=== PATIENT | male | born 1955 | race Caucasian/White ===

== ENCOUNTER 2022-08-02 20:11 | Observation (INO) ==
[2022-08-02 21:08] LABS: Basophils # (auto) 0.04 K/uL (0-0.2); Basophils % (auto) 0.4 %; Eosinophils # (auto) 0.35 K/uL (0-0.50); Eosinophils % (auto) 3.6 %; Hematocrit (blood only) 40.2 % (40.1-51.0); Hemoglobin 12.7 g/dl (14.0-18.0); Immature Granulocytes # (auto) 0.04 K/uL (0.00-0.02); Immature Granulocytes % (auto) 0.4 %; Lymphocytes # (auto) 2.39 K/uL (1.2-3.4); Lymphocytes % (auto) 24.6 %; Mean Corpuscular Hgb Conc 31.6 g/dL (32.0-36.0); Mean Corpuscular Volume 85.4 fL (80.0-100.0); Mean Platelet Volume 9.5 fL (9.4-12.4); Monocytes # (auto) 0.81 K/uL (0.24-0.82); Monocytes % (auto) 8.3 %; Neutrophils % (auto) 62.7 %; Platelet Count 248 K/uL (130-400); RDW Coefficient of Variation 13.4 % (11.5-14.5); RDW Standard Deviation 42.2 fL (36.4-46.3); Red Blood Count 4.71 M/uL (4.63-6.08); White Blood Count 9.73 K/ul (4.8-10.8)
[2022-08-02 21:09] LABS: Base Excess VBG -0.5 mEq/L; HCO3 VBG 24 mmol/L; Oxygen Saturation VBG 62.6 %; PCO2 VBG 39 mmHg (38-50); PO2 VBG 30 mmHg
[2022-08-02 21:15] LABS: D Dimer 300 ug/L FEU (0-500); Partial Thromboplastin Ratio 1.1; Partial Thromboplastin Time 29.1 Seconds (21.0-31.0); Prothrombin Time 10.9 Seconds (9.0-12.0)
[2022-08-02 21:17] LABS: Troponin I High Sensitivity 12.9 pg/ml (0-20)
[2022-08-02 21:20] LABS: Alanine Aminotransferase 8 U/L (7-52); Albumin Globulin Ratio 1.4 (0.9-2); Alkaline Phosphatase 47 U/L (34-104); Anion Gap 10 (3-11); Aspartate Aminotransferase 14 U/L (13-39); BUN Creatinine Ratio 16.7 (10-20); Bilirubin,Total 0.3 mg/dl (0.2-1.0); Blood Urea Nitrogen 18 mg/dl (6-23); Calcium 9.2 mg/dl (8.5-10.1); Carbon Dioxide 24 mmol/L (21-32); Chloride 105 mmol/L (98-107); Est GFR (Non-African American) 71.6 ml/min; Globulin 2.8 gm/dl (2.5-4.0); Glucose 232 mg/dl (70-99(Fasting)); Lipase 21 U/L (11-82); Potassium 3.7 mmol/L (3.5-5.1); Sodium 139 mmol/L (136-145); Total Protein 6.8 gm/dl (6.0-8.3)
--- NOTE | 2022-08-02 21:47 | XRay Report ---
XR chest 1V portable CLINICAL HISTORY: Chest Pain TECHNIQUE: Single frontal radiograph of the chest was obtained. Comparison: None available at the time of this dictation. FINDINGS: No lines and tubes are seen. The cardiomediastinal silhouette is normal. No airspace opacity is seen. There is bilateral hilar prominence. No evidence of pleural effusion or pneumothorax. IMPRESSION: 1. Mild pulmonary edema. 2. Prominent david may represent lymphadenopathy versus prominent pulmonary vasculature. If there is clinical concern, CT chest can be performed. ACT 112: Negative or not required by law. Electronically signed by: Shaun Bustamante M.D. 08/02/2022 9:46 PM
[2022-08-02] MEDS ORDERED: ALBUT/IPRATROP 3MG/0.5MG NEB 3 ML VIAL NEB STA (23:20)
[2022-08-03] MEDS ORDERED: OPTIRAY 300 500mL IV ONE (00:05)
[2022-08-03] MEDS ORDERED: methylPREDNISolone 125 MG/2 ML VIAL IV STA (01:52)
--- NOTE | 2022-08-03 01:52 | Emergency Department Note ---
History of Present Illness General Chief complaint: Chest Pain Stated complaint: CHEST PAIN Time Seen by Provider: 08/02/22 21:28 History of Present Illness This 67-year-old prisoner presents to the ER complaining of chest pain and shortness of breath Location: Chest Quality: Discomfort Severity: Mild Duration: Today Timing: Today Context: M[facility] was concerned and sent him in Modifying factors: better with nothing; worse with nothing Patient states he is feeling better now. He did have some chest pain today. He smokes. Patient denies fevers, abdominal pain, leg pain or swelling, history of blood clots. He is [place]ian-speaking and the optical instrument specialist line was utilized. Home Medications Medication Instructions Recorded Confirmed Type albuterol sulfate 90 mcg/actuation 2 puff inhalation QID PRN 08/02/22 08/02/22 History aerosol inhaler (Proventil HFA) Shortness Of Breath aspirin 81 mg tablet,delayed 81 mg PO DAILY 08/02/22 08/02/22 History release metformin 1,000 mg tablet 1,000 mg PO BID 08/02/22 08/02/22 History naproxen 500 mg tablet 500 mg PO BID PRN Back Pain 08/02/22 08/02/22 History rosuvastatin 40 mg tablet 40 mg PO HS 08/02/22 08/02/22 History prednisone 20 mg tablet 60 mg PO DAILY 4 days #12 tabs 08/03/22 Rx Allergies Allergy/AdvReac Type Severity Reaction Status Date / Time Fish Containing Products Allergy Unknown ON MED Verified 08/02/22 22:16 LIST--MARGAUX-[facility] Past Med/Surg History Medical History High blood pressure Surgical History (Updated 08/03/22 @ 01:51 by Cally Bird PA-C) History of heart valve replacement Social History Smoking Status: Former smoker Feels Safe at Home: Yes Review of Systems A total of 10 systems reviewed and were otherwise negative Physical Exam Vital Signs Vital Signs - 24 hr 08/02/22 20:33 08/02/22 20:40 08/03/22 01:06 Temperature 37.5 C Temperature Source Oral Pulse Rate 82 Pulse Rate from SpO2 Sensor Respiratory Rate 16 Respiratory Effort / Characteristics Non-Labored Non-Labored Respiratory Depth Normal Normal Blood Pressure 124/70 Blood Pressure Mean 88 Pulse Oximetry 94 93 Oxygen Delivery Method Room Air Room Air Oxygen Flow Rate Sepsis Recent Fever Within 48 Hours No Sepsis New/Unexplained Change in Mental Status No Sepsis Action Taken by Nursing No Action Required 08/02/22 21:37 08/02/22 21:40 08/02/22 21:50 Temperature Temperature Source Pulse Rate 82 84 78 Pulse Rate from SpO2 Sensor 83 83 79 Respiratory Rate 10 L 20 27 H Respiratory Effort / Characteristics Respiratory Depth Blood Pressure Blood Pressure Mean Pulse Oximetry 93 93 93 Oxygen Delivery Method Oxygen Flow Rate Sepsis Recent Fever Within 48 Hours Sepsis New/Unexplained Change in Mental Status Sepsis Action Taken by Nursing 08/02/22 22:00 08/02/22 22:10 08/02/22 22:20 Temperature Temperature Source Pulse Rate 88 77 76 Pulse Rate from SpO2 Sensor 86 75 75 Respiratory Rate 25 H 19 18 Respiratory Effort / Characteristics Respiratory Depth Blood Pressure Blood Pressure Mean Pulse Oximetry 95 90 90 Oxygen Delivery Method Oxygen Flow Rate Sepsis Recent Fever Within 48 Hours Sepsis New/Unexplained Change in Mental Status Sepsis Action Taken by Nursing 08/02/22 22:30 08/02/22 22:40 08/02/22 22:50 Temperature Temperature Source Pulse Rate 82 76 77 Pulse Rate from SpO2 Sensor 80 75 77 Respiratory Rate 17 16 15 Respiratory Effort / Characteristics Respiratory Depth Blood Pressure Blood Pressure Mean Pulse Oximetry 90 91 92 Oxygen Delivery Method Oxygen Flow Rate Sepsis Recent Fever Within 48 Hours Sepsis New/Unexplained Change in Mental Status Sepsis Action Taken by Nursing 08/02/22 23:00 08/02/22 23:10 08/02/22 23:20 Temperature Temperature Source Pulse Rate 80 78 77 Pulse Rate from SpO2 Sensor 81 78 78 Respiratory Rate 17 16 12 Respiratory Effort / Characteristics Respiratory Depth Blood Pressure Blood Pressure Mean Pulse Oximetry 93 91 92 Oxygen Delivery Method Oxygen Flow Rate Sepsis Recent Fever Within 48 Hours Sepsis New/Unexplained Change in Mental Status Sepsis Action Taken by Nursing 08/02/22 23:30 08/02/22 23:40 08/02/22 23:50 Temperature Temperature Source Pulse Rate 72 80 82 Pulse Rate from SpO2 Sensor 72 80 79 Respiratory Rate 16 16 19 Respiratory Effort / Characteristics Respiratory Depth Blood Pressure Blood Pressure Mean Pulse Oximetry 99 99 98 Oxygen Delivery Method Oxygen Flow Rate Sepsis Recent Fever Within 48 Hours Sepsis New/Unexplained Change in Mental Status Sepsis Action Taken by Nursing 08/03/22 00:08 08/03/22 00:10 08/03/22 00:20 Temperature Temperature Source Pulse Rate 94 H 89 Pulse Rate from SpO2 Sensor 91 H 96 H 87 Respiratory Rate 20 16 Respiratory Effort / Characteristics Respiratory Depth Blood Pressure Blood Pressure Mean Pulse Oximetry 93 93 94 Oxygen Delivery Method Oxygen Flow Rate Sepsis Recent Fever Within 48 Hours Sepsis New/Unexplained Change in Mental Status Sepsis Action Taken by Nursing 08/03/22 00:30 08/03/22 00:40 08/03/22 00:50 Temperature Temperature Source Pulse Rate 86 85 91 H Pulse Rate from SpO2 Sensor 87 86 91 H Respiratory Rate 18 12 18 Respiratory Effort / Characteristics Respiratory Depth Blood Pressure Blood Pressure Mean Pulse Oximetry 91 90 91 Oxygen Delivery Method Oxygen Flow Rate Sepsis Recent Fever Within 48 Hours Sepsis New/Unexplained Change in Mental Status Sepsis Action Taken by Nursing 08/03/22 01:00 08/03/22 01:10 08/03/22 01:20 Temperature Temperature Source Pulse Rate 86 89 88 Pulse Rate from SpO2 Sensor 87 90 89 Respiratory Rate 13 15 16 Respiratory Effort / Characteristics Respiratory Depth Blood Pressure Blood Pressure Mean Pulse Oximetry 91 91 91 Oxygen Delivery Method Oxygen Flow Rate Sepsis Recent Fever Within 48 Hours Sepsis New/Unexplained Change in Mental Status Sepsis Action Taken by Nursing 08/02/22 21:06 08/03/22 03:00 Temperature Temperature Source Pulse Rate Pulse Rate from SpO2 Sensor Respiratory Rate Respiratory Effort / Characteristics Non-Labored Respiratory Depth Normal Blood Pressure Blood Pressure Mean Pulse Oximetry Oxygen Delivery Method Room Air Oxygen Flow Rate 93 Sepsis Recent Fever Within 48 Hours Sepsis New/Unexplained Change in Mental Status Sepsis Action Taken by Nursing VITALS: Vitals are noted on the nurse's note and reviewed by myself. Vital signs stable. GENERAL: Male sitting on the bed comfortably, in no acute distress, nondiaphoretic, well-developed well-nourished. SKIN: The skin was without rashes, erythema, edema, or bruising. There is no tenting of the skin. Capillary reflex less than 2 seconds. HEAD: Normocephalic atraumatic. EARS: External auditory canals clear, EYES: Pupils equal round and reactive to light and accommodation. Conjunctivae without injection, sclerae without icterus. Extraocular movements intact. NOSE: Patent, turbinates without inflammation or discharge. MOUTH: Mucous membranes moist. Pharynx without erythema or exudate. Uvula midline. Airway patent. Tongue does not deviate. NECK: Supple without nuchal rigidity. No lymphadenopathy. No thyromegaly. Cervical spine is nontender. No JVD. HEART: Regular rate and rhythm LUNGS: Mild diffuse end expiratory wheezes, without rales or rhonchi. No retractions or accessory muscle use. ABDOMEN: Positive bowel sounds x 4. Normal tympanic percussion. Soft, nonte nder, without masses or organomegaly. De León sign negative. No guarding or rebound tenderness. No CVA tenderness MUSCULOSKELETAL: No muscle atrophy, erythema, or edema noted. NEURO: Patient was alert and oriented to person place and time. Normal sensation to light and sharp touch. No focal neurological deficits. Course Administered Medications Discontinued Medications Albuterol (Albut/Ipratrop 3mg/0.5mg Neb 3 Ml Vial) 3 ml NEB NOW STA; Protocol Stop: 08/02/22 23:21 Last Admin: 08/02/22 23:28 Dose: 3 ml Documented By: CHLOÉ Ioversol (Optiray 300 500ml) 120 ml IV ONCE ONE Stop: 08/03/22 00:06 Last Admin: 08/03/22 00:02 Dose: 120 ml Documented By: CELESTINA Methylprednisolone (Methylprednisolone 125 Mg/2 Ml Vial) 125 mg IV NOW STA Stop: 08/03/22 01:53 Last Admin: 08/03/22 02:45 Dose: 125 mg Documented By: CHLOÉ Medical Decision Making Medical Records Attestation: I reviewed the patient's medical records. Home Medications Current Medication List: was personally reviewed by me Laboratory Data Attestation: I reviewed the patient's lab results. Result diagrams: 08/02/22 20:20 08/02/22 20:20 Lab Results 08/02/22 08/02/22 08/02/22 Range/Units 20:20 20:20 20:20 WBC 9.73 (4.8-10.8) K/ul RBC 4.71 (4.63-6.08) M/uL Hgb 12.7 L (14.0-18.0) g/dl Hct 40.2 (40.1-51.0) % MCV 85.4 (80.0-100.0) fL MCH 27.0 (25.0-34.0) pg MCHC 31.6 L (32.0-36.0) g/dL RDW Std Deviation 42.2 (36.4-46.3) fL RDW Coeff of Zach 13.4 (11.5-14.5) % Plt Count 248 (130-400) K/uL MPV 9.5 (9.4-12.4) fL Immature Gran % (Auto) 0.4 % Neut % (Auto) 62.7 % Lymph % (Auto) 24.6 % Quay % (Auto) 8.3 % Eos % (Auto) 3.6 % Baso % (Auto) 0.4 % Neut # (Auto) 6.10 (1.4-6.5) K/uL Lymph # (Auto) 2.39 (1.2-3.4) K/uL Quay # (Auto) 0.81 (0.24-0.82) K/uL Eos # (Auto) 0.35 (0-0.50) K/uL Baso # (Auto) 0.04 (0-0.2) K/uL Immature Gran # (Auto) 0.04 H (0.00-0.02) K/uL PT 10.9 (9.0-12.0) Seconds INR 1.0 (0.9-1.1) APTT 29.1 (21.0-31.0) Seconds PTT Ratio 1.1 D-Dimer 300 (0-500) ug/L FEU VBG pH (7.36-7.41) VBG pCO2 (38-50) mmHg VBG pO2 mmHg VBG HCO3 mmol/L VBG O2 Saturation % VBG Base Excess mEq/L Methemoglobin (0.0-1.5) % Sodium 139 (136-145) mmol/L Potassium 3.7 (3.5-5.1) mmol/L Chloride 105 (98-107) mmol/L Carbon Dioxide 24 (21-32) mmol/L Anion Gap 10 (3-11) BUN 18 (6-23) mg/dl Creatinine 1.08 (0.6-1.4) mg/dl Est Cr Clr Drug Dosing Not Reportable Est GFR ( Amer) 83.0 ml/min Est GFR (Non-Af Amer) 71.6 ml/min BUN/Creatinine Ratio 16.7 (10-20) Glucose 232 H (70-99(Fasting)) mg/dl Calcium 9.2 (8.5-10.1) mg/dl Total Bilirubin 0.3 (0.2-1.0) mg/dl AST 14 (13-39) U/L ALT 8 (7-52) U/L Alkaline Phosphatase 47 (34-104) U/L Troponin I High Sens 12.9 (0-20) pg/ml Total Protein 6.8 (6.0-8.3) gm/dl Albumin 4.0 (3.4-5.0) gm/dl Globulin 2.8 (2.5-4.0) gm/dl Albumin/Globulin Ratio 1.4 (0.9-2) Lipase 21 (11-82) U/L 08/02/22 08/02/22 08/03/22 Range/Units 21:02 21:02 02:14 WBC (4.8-10.8) K/ul RBC (4.63-6.08) M/uL Hgb (14.0-18.0) g/dl Hct (40.1-51.0) % MCV (80.0-100.0) fL MCH (25.0-34.0) pg MCHC (32.0-36.0) g/dL RDW Std Deviation (36.4-46.3) fL RDW Coeff of Zach (11.5-14.5) % Plt Count (130-400) K/uL MPV (9.4-12.4) fL Immature Gran % (Auto) % Neut % (Auto) % Lymph % (Auto) % Quay % (Auto) % Eos % (Auto) % Baso % (Auto) % Neut # (Auto) (1.4-6.5) K/uL Lymph # (Auto) (1.2-3.4) K/uL Quay # (Auto) (0.24-0.82) K/uL Eos # (Auto) (0-0.50) K/uL Baso # (Auto) (0-0.2) K/uL Immature Gran # (Auto) (0.00-0.02) K/uL PT (9.0-12.0) Seconds INR (0.9-1.1) APTT (21.0-31.0) Seconds PTT Ratio D-Dimer (0-500) ug/L FEU VBG pH 7.40 (7.36-7.41) VBG pCO2 39 (38-50) mmHg VBG pO2 30 mmHg VBG HCO3 24 mmol/L VBG O2 Saturation 62.6 % VBG Base Excess -0.5 mEq/L Methemoglobin < 0.7 (0.0-1.5) % Sodium (136-145) mmol/L Potassium (3.5-5.1) mmol/L Chloride (98-107) mmol/L Carbon Dioxide (21-32) mmol/L Anion Gap (3-11) BUN (6-23) mg/dl Creatinine (0.6-1.4) mg/dl Est Cr Clr Drug Dosing Est GFR ( Amer) ml/min Est GFR (Non-Af Amer) ml/min BUN/Creatinine Ratio (10-20) Glucose (70-99(Fasting)) mg/dl Calcium (8.5-10.1) mg/dl Total Bilirubin (0.2-1.0) mg/dl AST (13-39) U/L ALT (7-52) U/L Alkaline Phosphatase (34-104) U/L Troponin I High Sens 24.7 H D (0-20) pg/ml Total Protein (6.0-8.3) gm/dl Albumin (3.4-5.0) gm/dl Globulin (2.5-4.0) gm/dl Albumin/Globulin Ratio (0.9-2) Lipase (11-82) U/L Imaging Data Attestation: I personally reviewed and interpreted this imaging study as follows: Radiologist's Impression: Chest X-Ray 08/02/22 20:40 XR chest 1V portable CLINICAL HISTORY: Chest Pain TECHNIQUE: Single frontal radiograph of the chest was obtained. Comparison: None available at the time of this dictation. FINDINGS: No lines and tubes are seen. The cardiomediastinal silhouette is normal. No airspace opacity is seen. There is bilateral hilar prominence. No evidence of pleural effusion or pneumothorax. IMPRESSION: 1. Mild pulmonary edema. 2. Prominent david may represent lymphadenopathy versus prominent pulmonary vasculature. If there is clinical concern, CT chest can be performed. ACT 112: Negative or not required by law. Electronically signed by: Shaun Bustamante M.D. 08/02/2022 9:46 PM MDM Narrative Prior records/ancillary studies reviewed. Triage Nursing notes reviewed. Additional history obtained from nursing. The patient's history was concerning for chest pain. Differential diagnosis: Etiologies such as cardiac ischemia, aortic dissection, pulmonary embolism, pneumonia, pneumothorax, musculoskeletal, infections, pericarditis, myocarditis, esophageal rupture, gastrointestinal, as well as others were entertained. Physical examination: As above. ER treatment provided: An order was placed for continuous cardiac monitoring. The monitor shows a rate of 60-100 with a sinus rhythm. Nebulizer, steroids, intermediate give aspirin On reassessment the patient felt better. Diagnostic interpretation by me: The electrocardiogram was negative for pathologic change. Order for chest pain EKG: Normal sinus, normal intervals, no acute ST-T wave changes. Impression normal sinus rhythm interpreted by myself I think arrhythmia is unlikely. EKG shows normal sinus rhythm with no interval abnormalities such as QT prolongation or WPW. There are no findings to suggest Brugada syndrome. Cardiac monitoring in the emergency department reveals no tachycardic or bradycardic dysrhythmia. Hypertrophic cardiomyopathy was considered but there are no clear historical elements pointing toward this. EKG is not suggestive. The QRS voltage is not extremely large and there are no suggestive Q waves. The labs revealed 1 negative troponin and repeat was elevated Imaging studies: Preliminary Findings Only See Final Report For Complete Findings CTA CHEST: Negative for PE Centrilobular emphysema Peribronchial cuffing compatible with COPD Dependent atelectasis noted No acute airspace disease or effusions are present Left lower lobe opacity in the medial segment image measures up to 4 x 2 mm and requires follow-up according to institutional protocol Radiologist: Shaun Rhoades MD chest x-ray with no acute consolidation, pneumothorax or free air per my interpretation HEART SCORE: Hx: high/mod/low suspicion: 0 ECG: ST depression/nonspecific changes/normal: 0 Age: Greater than 65/45-64/less than 45: 2 Risk factors: (Hypertension, hyperlipidemia, diabetes, coronary disease, tobacco use, cocaine use): 2 Troponin: Greater than 2 times normal limits/1-2 times normal limits/normal: 1 Total: 5 Exam and history seem consistent with chest pain that could be to be cardiac in etiology. Patient does have some COPD exacerbation. Repeat troponin is elevated. Medicine was consulted for the admission. By the evaluation outlined above emergent etiologies such as aortic dissection, pulmonary embolism, pneumonia, pneumothorax, infections, pericarditis, myocarditis, gastrointestinal, as well as others were deemed relatively unlikely. Patient was informed of lung nodule seen on imaging And advised to see the intermediate doctor for this. The pt informed about the findings as listed above. All questions were answered and pleased with the treatment. The chart was completed utilizing [employer] Speech voice recognition software. G rammatical errors, random word insertions, pronoun errors, and incomplete sentences are an occassional consequence of this system due to software limitations, ambient noise, and hardware issues. Any formal questions or concerns about the content, text, or information contained within the body of th is dictation should be directly addressed to the physician executive assistant for clarification. Impression & Plan Chest pain, COPD exacerbation, Elevated troponin Discharge Plan Visit Data Chief Complaint: Chest Pain Stated Complaint: CHEST PAIN ED Provider: Wyatt Mahajan ED Midlevel Provider: Cally Bird Discharge Problem: Chest pain, COPD exacerbation, Elevated troponin Patient Disposition: Admitted As Inpatient Condition: Good Forms Stand Alone Forms: My [facility] Prescriptions Prescriptions: New prednisone 20 mg tablet 60 mg PO DAILY 4 Days Qty: 12 0RF No Action aspirin 81 mg Tablet,Delayed Release (Dr/Ec) 81 mg PO DAILY metformin 1,000 mg Tablet 1,000 mg PO BID albuterol sulfate [Proventil HFA] 90 mcg/actuation Hfa Aerosol Inhaler 2 puff INHALATION QID PRN (Reason: Shortness Of Breath) naproxen 500 mg Tablet 500 mg PO BID PRN (Reason: Back Pain) Rx Instructions: WITH FOOD rosuvastatin 40 mg Tablet 40 mg PO HS Referrals Referrals: Len JACKSON [Primary Care Provider] - : Chest pain Qualifiers: Chest pain type: unspecified Qualified Code(s): R07.9 - Chest pain, unspecified
[2022-08-03] MEDS ORDERED: ACETAMINOPHEN 325 MG TAB PO PRN (03:36)
[2022-08-03] MEDS ORDERED: NITROGLYCERIN SL 0.4 MG/TAB TAB SL PRN (03:36)
[2022-08-03] MEDS ORDERED: ASPIRIN 325 MG ECTAB PO STA (03:36)
[2022-08-03] MEDS ORDERED: POLYETHYLENE (MIRALAX) 17 GM PACK PO PRN (03:36)
[2022-08-03] MEDS ORDERED: ATORVASTATIN 40 MG TAB PO STA (03:39)
[2022-08-03] MEDS ORDERED: ENOXAPARIN INJ 40 MG/0.4 ML SYR SQ SCH (03:45)
--- NOTE | 2022-08-03 04:06 | History & Physical Report ---
Date of Service August 03, 2022 Assessment & Plan (1) Elevated troponin: Plan: - patient without chest pain - describes what could be stable angina with exertion - troponin 12-->24 - ECG without ischemic changes x2 - s/p Aspirin 325mg, atorvastatin 80mg - telemetry monitoring - TTE ordered - consider Cardiology consult if TTE abnormal (2) DM2 (diabetes mellitus, type 2): Plan: - A1c ordered - takes metformin - will hold inpatient - started on lantus 5 units, SSI for now - FSG AC+HS - diabetic diet (3) COPD (chronic obstructive pulmonary disease): Plan: - significant smoking history and evidence of COPD on CT - reportedly wheezing on presentation - CTAB on my exam - s/p IV solumedrol - will discontinue this and give Spiriva - albuterol prn - LLL opacity noted on CTA - will need follow up in about 6 months Plan DVT ppx: lovenox Code Status: Full code Dispo: telemetry Jameel Alberto MD Hospital Medicine Admission and Anticipated Discharge Date Admission Date: 08/03/2022 History of Present Illness Chief Complaint: chest pain Primary Care Provider: RENETTA Harrington The patient is a 67 year old man with pmh DM2, h/o 2 heart valve replacements/repairs, likely COPD who presented with complaint of chest pain that happened about 2 months ago. He reports that he was playing dominos when he got left sided chest pain and left arm pain. It resolved spontaneously. He also reported shortness of breath. On further questioning, he reports sometimes getting cehst pain after walking for about 8 minutes and sometimes with shortness of breath. These symptoms improve with rest, but they do not happen all the time. He denies nausea or vomiting, diaphoresis, LOC, light headedness with these episodes. He denies history of [place] or stroke. He used to smoke cigarettes for many years but quit 1 year ago and then quit e cigarettes about 1 month ago. Denies leg swelling, orthopnea, pnd, coughing, fever or chills, diarrhea. Denies chest pain at this time or within the last 24 hours at least. In the ED, vitals were stable. Labs were significant for troponin 12.9-->24.7. ECG without ischemic changes x2. CXR with ?pulm edema, CTA chest without PE but evidence of COPD as LLL opacity that should be followed up. He was given steroids, DuoNeb and admitted to medicine for further management. Allergies Allergy/AdvReac Type Severity Reaction Status Date / Time Fish Containing Products Allergy Unknown ON MED Verified 08/02/22 22:16 LIST--[facility] Home Medications Medication Instructions Recorded Confirmed Type albuterol sulfate 90 mcg/actuation 2 puff inhalation QID PRN 08/02/22 08/02/22 History aerosol inhaler (Proventil HFA) Shortness Of Breath aspirin 81 mg tablet,delayed 81 mg PO DAILY 08/02/22 08/02/22 History release metformin 1,000 mg tablet 1,000 mg PO BID 08/02/22 08/02/22 History naproxen 500 mg tablet 500 mg PO BID PRN Back Pain 08/02/22 08/02/22 History rosuvastatin 40 mg tablet 40 mg PO HS 08/02/22 08/02/22 History prednisone 20 mg tablet 60 mg PO DAILY 4 days #12 tabs 08/03/22 Rx Past Med/Surg History Medical History High blood pressure Surgical History (Updated 08/03/22 @ 01:51 by Cally Bird PA-C) History of heart valve replacement Social History Smoking Status: Former smoker Feels Safe at Home: Yes Review of Systems Review of Systems: All systems reviewed & are unremarkable except as noted in Subjective Physical Exam Constitutional: WD/WN, vitals as above Eyes: PERRL, conjunctivae normal, anicteric sclerae ENMT: external ear and nose normal, oropharynx normal Neck: trachea midline, no thyromegaly Respiratory: normal respiratory effort, lungs clear to auscultation Cardiovascular: RRR, no murmur, no edema Gastrointestinal (Abdomen): normal bowel sounds, soft, nontender, no hepatosplenomegaly Musculoskeletal: no cyanosis or clubbing, extremities motor strength 5/5 Skin: no rashes, warm and dry Neurologic: patellar DTR's 2+ bilat, sensation intact and PERRL, EOMI, accommodation nl, no face palsy, no dysarthria Psychiatric: A+Ox3, euthymic affect Results & Data Results & Data ([facility]) Vital Signs (Past 12 Hours) Vital Signs Temp Pulse Resp BP Pulse Ox O2 Del Method O2 Flow Rate 08/02/22 21:06 Room Air 93 08/03/22 01:20 88 16 91 08/03/22 01:10 89 15 91 08/03/22 01:00 86 13 91 08/03/22 00:50 91 H 18 91 08/03/22 00:40 85 12 90 08/03/22 00:30 86 18 91 08/03/22 00:20 89 16 94 08/03/22 00:10 94 H 20 93 08/03/22 00:08 93 08/02/22 23:50 82 19 98 08/02/22 23:40 80 16 99 08/02/22 23:30 72 16 99 08/02/22 23:20 77 12 92 08/02/22 23:10 78 16 91 08/02/22 23:00 80 17 93 08/02/22 22:50 77 15 92 08/02/22 22:40 76 16 91 08/02/22 22:30 82 17 90 08/02/22 22:20 76 18 90 08/02/22 22:10 77 19 90 08/02/22 22:00 88 25 H 95 08/02/22 21:50 78 27 H 93 08/02/22 21:40 84 20 93 08/02/22 21:37 82 10 L 93 08/02/22 20:40 93 Room Air 08/02/22 20:33 37.5 C 82 16 124/70 94 Room Air Laboratory Results Short CBC 08/02/22 Range/Units 20:20 WBC 9.73 (4.8-10.8) K/ul Hgb 12.7 L (14.0-18.0) g/dl Hct 40.2 (40.1-51.0) % Plt Count 248 (130-400) K/uL BMP 08/02/22 20:20 Sodium 139 Potassium 3.7 Chloride 105 Carbon Dioxide 24 BUN 18 Creatinine 1.08 Glucose 232 H Calcium 9.2 Liver Function 08/02/22 Range/Units 20:20 Total Bilirubin 0.3 (0.2-1.0) mg/dl AST 14 (13-39) U/L ALT 8 (7-52) U/L Alkaline Phosphatase 47 (34-104) U/L Albumin 4.0 (3.4-5.0) gm/dl Diagnostic Findings Chest X-Ray 08/02/22 20:40 XR chest 1V portable CLINICAL HISTORY: Chest Pain TECHNIQUE: Single frontal radiograph of the chest was obtained. Comparison: None available at the time of this dictation. FINDINGS: No lines and tubes are seen. The cardiomediastinal silhouette is normal. No airspace opacity is seen. There is bilateral hilar prominence. No evidence of pleural effusion or pneumothorax. IMPRESSION: 1. Mild pulmonary edema. 2. Prominent david may represent lymphadenopathy versus prominent pulmonary vasculature. If there is clinical concern, CT chest can be performed. ACT 112: Negative or not required by law. Electronically signed by: Shaun Bustamante M.D. 08/02/2022 9:46 PM Medications Administered Current Inpatient Medications Acetaminophen (Acetaminophen 325 Mg Tab) 650 mg PO Q4H PRN PRN Reason: Pain or Fever Stop: 09/02/22 03:35 Dextrose (Dextrose 50% 50 Ml Syringe) 25 - 50 ml IV UD PRN; Protocol PRN Reason: Hypoglycemia Protocol Stop: 09/02/22 04:13 Enoxaparin Sodium (Enoxaparin Inj 40 Mg/0.4 Ml Syr) 40 mg SQ Q24H HEBERT Stop: 09/02/22 09:44 Glucagon (Glucagon For Inj 1 Mg Vial) 1 mg SQ UD PRN; Protocol PRN Reason: Hypoglycemia Protocol Stop: 09/02/22 04:13 Glucose (Glucose 40% Gel 15 Gm Tube) 15 - 30 gm PO UD PRN; Protocol PRN Reason: Hypoglycemia Protocol Stop: 09/02/22 04:13 Glucose (Glucose 10 Tab/Tube) 4 - 8 tab PO UD PRN; Protocol PRN Reason: Hypoglycemia Treatment Stop: 09/02/22 04:13 Insulin Aspart (Insulin Aspart Per Unit) 0 units SC ACHS HEBERT Stop: 09/02/22 07:29 Insulin Glargine (Lantus Per Unit Charge) 5 units SQ HS HEBERT Stop: 09/02/22 04:14 Miscellaneous (Carbohydrates For Hypoglycemia ) 15 - 30 gm PO UD PRN PRN Reason: Hypoglycemia Protocol Stop: 09/02/22 04:13 Miscellaneous Information (Pharmacy Glycemic Mgmt Consult) 1 each N/A UD PRN PRN Reason: Consult Stop: 09/02/22 04:13 Nitroglycerin (Nitroglycerin Sl 0.4 Mg/Tab Tab) 0.4 mg SL UD PRN PRN Reason: Chest Pain Stop: 09/02/22 03:35 Polyethylene Glycol (Polyethylene (Miralax) 17 Gm Pack) 17 gm PO DAILY PRN PRN Reason: Constipation Stop: 09/02/22 03:35 Code Status & VTE Plan Code Status Full Code VTE Prophylaxis Plan VTE Prophylaxis will be ordered: Yes
[2022-08-03] MEDS ORDERED: DEXTROSE 50% 50 ML SYRINGE IV PRN (04:14)
[2022-08-03] MEDS ORDERED: GLUCOSE 10 TAB/TUBE PO PRN (04:14)
[2022-08-03] MEDS ORDERED: GLUCOSE 40% GEL 15 GM TUBE PO PRN (04:14)
[2022-08-03] MEDS ORDERED: PHARMACY GLYCEMIC MGMT CONSULT PRN (04:14)
[2022-08-03] MEDS ORDERED: CARBOHYDRATES FOR HYPOGLYCEMIA PO PRN (04:14)
[2022-08-03] MEDS ORDERED: GLUCAGON FOR INJ 1 MG VIAL SQ PRN (04:14)
[2022-08-03] MEDS ORDERED: LANTUS PER UNIT CHARGE SQ ONE (04:30)
[2022-08-03] MEDS: INSULIN ASPART PER UNIT SC SCH ×5 (06:01→20:05)
[2022-08-03] MEDS ORDERED: ALBUTEROL HFA 8 GM INHALER INH PRN (06:30)
[2022-08-03 06:35] LABS: Basophils # (auto) 0.03 K/uL (0-0.2); Basophils % (auto) 0.4 %; Eosinophils # (auto) 0.08 K/uL (0-0.50); Hematocrit (blood only) 40.3 % (40.1-51.0); Hemoglobin 13.2 g/dl (14.0-18.0); Immature Granulocytes # (auto) 0.02 K/uL (0.00-0.02); Immature Granulocytes % (auto) 0.3 %; Mean Corpuscular Hgb Conc 32.8 g/dL (32.0-36.0); Mean Corpuscular Volume 82.6 fL (80.0-100.0); Mean Platelet Volume 9.2 fL (9.4-12.4); Monocytes # (auto) 0.23 K/uL (0.24-0.82); Neutrophils # (auto) 6.33 K/uL (1.4-6.5); Neutrophils % (auto) 82.3 %; Platelet Count 241 K/uL (130-400); RDW Coefficient of Variation 13.5 % (11.5-14.5); RDW Standard Deviation 40.3 fL (36.4-46.3); Red Blood Count 4.88 M/uL (4.63-6.08); White Blood Count 7.69 K/ul (4.8-10.8)
[2022-08-03 07:01] LABS: Chol HDL Ratio 3.6 (0-5)
[2022-08-03 07:02] LABS: Troponin I High Sensitivity 43.9 pg/ml (0-20)
[2022-08-03 07:08] LABS: Alanine Aminotransferase 8 U/L (7-52); Albumin Globulin Ratio 1.5 (0.9-2); Albumin Level 3.9 gm/dl (3.4-5.0); Alkaline Phosphatase 52 U/L (34-104); Anion Gap 8 (3-11); Aspartate Aminotransferase 11 U/L (13-39); BUN Creatinine Ratio 20.7 (10-20); Bilirubin,Total 0.4 mg/dl (0.2-1.0); Blood Urea Nitrogen 18 mg/dl (6-23); Carbon Dioxide 22 mmol/L (21-32); Chloride 108 mmol/L (98-107); Est GFR (African American) 104.2 ml/min; Est GFR (Non-African American) 89.9 ml/min; Globulin 2.6 gm/dl (2.5-4.0); Glucose 162 mg/dl (70-99(Fasting)); Magnesium 1.6 mg/dl (1.7-2.4); Phosphorus 2.2 mg/dl (2.5-4.9); Potassium 4.1 mmol/L (3.5-5.1); Sodium 138 mmol/L (136-145); Total Protein 6.5 gm/dl (6.0-8.3)
--- NOTE | 2022-08-03 07:32 | Electrocardiogram Report ---
Test Reason : Blood Pressure : / mmHG Vent. Rate : 082 BPM Atrial Rate : 082 BPM P-R Int : 188 ms QRS Dur : 086 ms QT Int : 382 ms P-R-T Axes : 044 054 041 degrees QTc Int : 446 ms Normal sinus rhythm Nonspecific ST abnormality No previous ECGs available Confirmed by Giovanni Collazo ([id number]) on 08/03/2022 7:32:18 AM Referred By: Len JACKSON Confirmed By:Storm Collazo
--- NOTE | 2022-08-03 07:38 | Electrocardiogram Report ---
Test Reason : Blood Pressure : / mmHG Vent. Rate : 080 BPM Atrial Rate : 080 BPM P-R Int : 206 ms QRS Dur : 088 ms QT Int : 384 ms P-R-T Axes : 062 062 051 degrees QTc Int : 442 ms Normal sinus rhythm with 1st degree AV block Normal ECG When compared with ECG of 02-AUG-2022 20:24, (unconfirmed) No significant change was found Confirmed by Giovanni Collazo ([id number]) on 08/03/2022 7:38:10 AM Referred By: Len JACKSON Confirmed By:Storm Collazo
[2022-08-03 08:08] LABS: Estimated Average Glucose 160 mg/dl; Hemoglobin A1C 7.2 % (4.5-5.6)
--- NOTE | 2022-08-03 08:57 | CT Scan Report ---
CT ANGIOGRAPHY OF THE CHEST, PULMONARY EMBOLUS PROTOCOL CLINICAL HISTORY: Atypical chest pain. Shortness of breath. Evaluate for pulmonary embolus. COMPARISON STUDY: Chest radiograph August 02, 2022. TECHNIQUE: Following IV administration of 120 mL of Optiray, helical axial images of the chest were o btained utilizing the pulmonary embolus protocol. Maximal intensity projections and sagittal and cor onal reformats were viewed on an independent 3D workstation. IV contrast was administered without co mplication. Automated exposure control was utilized for the study. A dose lowering technique was ut ilized adhering to the principles of ALARA. CT DOSE: 503.88 mGy.cm FINDINGS: No pulmonary emboli are identified. There is no thoracic aortic dissection. No pericardial effusion is present. Borderline cardiomegaly is noted. There is a small hiatal hernia. No thoracic l ymphadenopathy. Severe upper lobe predominant emphysema is present. There is no consolidation to sugg est pneumonia. Subpleural opacities reflect atelectasis. There is mild interlobular septal thickening within the lower lobes. Calcified granuloma within the lingula is present. No pneumothorax or pleura l effusion is present. No acute rib or thoracic spine fractures identified. Visualized portions of th e upper abdomen are unremarkable. IMPRESSION: 1. No pulmonary emboli identified. 2. Severe upper lobe predominant emphysema. 3. Possible mild interstitial pulmonary edema. 4. Subpleural opacities consistent with atelectasis. No consolidation to suggest pneumonia. ACT 112: Negative or not required by law. Electronically signed by: Eduardo Fajardo M.D. 08/03/2022 8:55 AM
[2022-08-03] MEDS: UMECLIDINIUM BROMIDE 62.5MCG/BLISTER 7 PUFFS/INHALER INH SCH (09:47)
[2022-08-03] MEDS: ENOXAPARIN INJ 40 MG/0.4 ML SYR SQ SCH (09:48)
--- NOTE | 2022-08-03 11:59 | Communication Note ---
Date of Service: August 03, 2022 Patient seen and examined at bedside. He was lying in the bed comfortably; in no acute distress. Video programming development project manager used to communicate with the patient. He denies any chest pain, shortness of breath or dizziness. He said he had episode of chest pain 2 months back and last night which was on the left side; nonradiating. He told me he had some form of valve surgery several years back but was unable to elaborate more. On examination, he was alert oriented x3. Chest auscultation revealed S1-S2, no murmur appreciated, distal breath sounds on lung auscultation. No pitting edema. He is EKG shows normal sinus rhythm with first-degree heart AV block. Troponin up trended to 43.9 from 24. Plan is to trend troponin, obtain echo and cardiology evaluation.
--- NOTE | 2022-08-03 13:30 | Cardiology Consultation ---
Date of Consultation August 03, 2022 Assessment & Plan (1) Elevated troponin: (2) COPD exacerbation: (3) Chest pain: Plan 67-year-old male with cardiovascular risk factors of age gender hypertension, diabetes mellitus, hyperlipidemia and possible prior cardiac disease who present s with symptoms of chest pain at low level workload and with exertion. Troponin minimally elevated. EKG normal on serial testing. Patient feels he has had prior valve interventions percutaneously but no evidence of such on echocardiogram or CT images. Review of CT images suggest possible LAD stent. Diffuse aortic atherosclerosis Overall LV systolic function is normal Recommendations: Begin low-dose beta-steffen. Continue aspirin and statin Obtain records from prior hospitalizations [facility] Would suggest stress testing either inpatient or outpatient History of Present Illness Reason for Consultation: Chest pain, history of heart disease Requesting Physician: Dr. Hernandes Attending Physician: Javier Hernandes MD History of Present Illness Patient is a 67-year-old male male currently at [facility] who presents noting symptoms of left chest pain radiating to left shoulder while playing dominoes yesterday. Patient only fair historian and information obtained using video washroom attendant. His underlying issues include chronic obstructive lung disease, hyperlipidemia, elevated glucoses and hemoglobin A1c. Cardiac issues patient notes prior cardiac procedure at [facility] in [facility]. Notes possible valvular issue. It is aware of occasional chest tightness with heavier exertion. No tachypalpitations syncope or near syncope. No acute weight loss or gain. Notes cough and wheezing on initial presentation yesterday. Patient treated with duo nebs and steroids. No recurrence of symptoms in hospital. Allergies Allergy/AdvReac Type Severity Reaction Status Date / Time Fish Containing Products Allergy Unknown ON MED Verified 08/02/22 22:16 [facility] Home Medications Medication Instructions Recorded Confirmed Type albuterol sulfate 90 mcg/actuation 2 puff inhalation QID PRN 08/02/22 08/02/22 History aerosol inhaler (Proventil HFA) Shortness Of Breath aspirin 81 mg tablet,delayed 81 mg PO DAILY 08/02/22 08/02/22 History release metformin 1,000 mg tablet 1,000 mg PO BID 08/02/22 08/02/22 History naproxen 500 mg tablet 500 mg PO BID PRN Back Pain 08/02/22 08/02/22 History rosuvastatin 40 mg tablet 40 mg PO HS 08/02/22 08/02/22 History prednisone 20 mg tablet 60 mg PO DAILY 4 days #12 tabs 08/03/22 Rx Patient History Medical History High blood pressure Surgical History History of heart valve replacement Social History Smoking Status: Former smoker Second Hand Exposure: No; Do You Dip or Chew Tobacco: No; Tobacco Cessation Education Requested by Patient: No Hx Alcohol Use: Yes Alcohol type: hard liquor Hx Substance Use: No Preferred Language: Ecuadorean Communication Ability: Effective Human Resource Professional Required: No Beliefs That Will Affect Care: None Current Living Situation: Alone Other Information That Helps Us Care for You: No Feels Safe at Home: Yes and No Is there a partner from a previous relationship who is making you feel unsafe now?: No Any Concerns about Your Family Situation: No Would You Like to Speak to Someone About Your Situation: No Safety Concerns: Feels Safe At This Time Assistive Devices: None Review of Systems Review of Systems: All systems reviewed & are unremarkable except as noted in Subjective Physical Exam Constitutional: WD/WN, vitals as above no acute distress Eyes: PERRL, conjunctivae normal, anicteric sclerae ENMT: external ear and nose normal, oropharynx normal Neck: trachea midline, no thyromegaly Respiratory: normal respiratory effort, lungs clear to auscultation Cardiovascular: RRR, no murmur, no edema Gastrointestinal (Abdomen): normal bowel sounds, soft, nontender, no hepatosplenomegaly Musculoskeletal: no cyanosis or clubbing, extremities motor strength 5/5 Results & Data ([facility]) Vital Signs (Past 12 Hours) Vital Signs Temp Pulse Pulse Pulse Resp BP Pulse Ox 08/03/22 11:18 36.8 C 84 19 102/60 90 08/03/22 08:26 08/03/22 08:26 36.4 C L 90 18 113/64 94 08/03/22 08:46 88 08/03/22 08:37 36.4 C L 90 16 113/64 90 08/03/22 07:59 77 20 103/59 L 94 08/03/22 07:22 88 20 101/50 L 92 O2 Del Method O2 Flow Rate 08/03/22 11:18 Room Air 08/03/22 08:26 Room Air 08/03/22 08:26 Room Air 08/03/22 08:46 08/03/22 08:37 Room Air 08/03/22 07:59 Nasal Cannula 2 08/03/22 07:22 Room Air Laboratory Results Laboratory Results - last 24 hr 08/02/22 08/02/22 08/02/22 20:20 20:20 20:20 WBC 9.73 RBC 4.71 Hgb 12.7 L Hct 40.2 MCV 85.4 MCH 27.0 MCHC 31.6 L RDW Std Deviation 42.2 RDW Coeff of Zach 13.4 Plt Count 248 MPV 9.5 Immature Gran % (Auto) 0.4 Neut % (Auto) 62.7 Lymph % (Auto) 24.6 [place] % (Auto) 8.3 Eos % (Auto) 3.6 Baso % (Auto) 0.4 Neut # (Auto) 6.10 Lymph # (Auto) 2.39 [place] # (Auto) 0.81 Eos # (Auto) 0.35 Baso # (Auto) 0.04 Immature Gran # (Auto) 0.04 H PT 10.9 INR 1.0 APTT 29.1 PTT Ratio 1.1 D-Dimer 300 VBG pH VBG pCO2 VBG pO2 VBG HCO3 VBG O2 Saturation VBG Base Excess Methemoglobin Sodium 139 Potassium 3.7 Chloride 105 Carbon Dioxide 24 Anion Gap 10 BUN 18 Creatinine 1.08 Est Cr Clr Drug Dosing Not Reportable Est GFR ( Amer) 83.0 Est GFR (Non-Af Amer) 71.6 BUN/Creatinine Ratio 16.7 Glucose 232 H POC Glucose Estimat Average Glucose Hemoglobin A1c Calcium 9.2 Phosphorus Magnesium Total Bilirubin 0.3 AST 14 ALT 8 Alkaline Phosphatase 47 Troponin I High Sens 12.9 Total Protein 6.8 Albumin 4.0 Globulin 2.8 Albumin/Globulin Ratio 1.4 Triglycerides Cholesterol LDL Cholesterol, Calc VLDL Cholesterol, Calc HDL Cholesterol Cholesterol/HDL Ratio Lipase 21 SARS-CoV-2, RNA, NAAT 08/02/22 08/02/22 08/03/22 21:02 21:02 02:14 WBC RBC Hgb Hct MCV MCH MCHC RDW Std Deviation RDW Coeff of Zach Plt Count MPV Immature Gran % (Auto) Neut % (Auto) Lymph % (Auto) [place] % (Auto) Eos % (Auto) Baso % (Auto) Neut # (Auto) Lymph # (Auto) [place] # (Auto) Eos # (Auto) Baso # (Auto) Immature Gran # (Auto) PT INR APTT PTT Ratio D-Dimer VBG pH 7.40 VBG pCO2 39 VBG pO2 30 VBG HCO3 24 VBG O2 Saturation 62.6 VBG Base Excess -0.5 Methemoglobin < 0.7 Sodium Potassium Chloride Carbon Dioxide Anion Gap BUN Creatinine Est Cr Clr Drug Dosing Est GFR ( Amer) Est GFR (Non-Af Amer) BUN/Creatinine Ratio Glucose POC Glucose Estimat Average Glucose Hemoglobin A1c Calcium Phosphorus Magnesium Total Bilirubin AST ALT Alkaline Phosphatase Troponin I High Sens 24.7 H D Total Protein Albumin Globulin Albumin/Globulin Ratio Triglycerides Cholesterol LDL Cholesterol, Calc VLDL Cholesterol, Calc HDL Cholesterol Cholesterol/HDL Ratio Lipase SARS-CoV-2, RNA, NAAT 08/03/22 08/03/22 08/03/22 04:10 05:25 06:03 WBC RBC Hgb Hct MCV MCH MCHC RDW Std Deviation RDW Coeff of Zach Plt Count MPV Immature Gran % (Auto) Neut % (Auto) Lymph % (Auto) [place] % (Auto) Eos % (Auto) Baso % (Auto) Neut # (Auto) Lymph # (Auto) [place] # (Auto) Eos # (Auto) Baso # (Auto) Immature Gran # (Auto) PT INR APTT PTT Ratio D-Dimer VBG pH VBG pCO2 VBG pO2 VBG HCO3 VBG O2 Saturation VBG Base Excess Methemoglobin Sodium 138 Potassium 4.1 Chloride 108 H Carbon Dioxide 22 Anion Gap 8 BUN 18 Creatinine 0.87 Est Cr Clr Drug Dosing Not Reportable Est GFR ( Amer) 104.2 Est GFR (Non-Af Amer) 89.9 BUN/Creatinine Ratio 20.7 H Glucose 162 H POC Glucose 155 H Estimat Average Glucose Hemoglobin A1c Calcium 9.0 Phosphorus 2.2 L Magnesium 1.6 L Total Bilirubin 0.4 AST 11 L ALT 8 Alkaline Phosphatase 52 Troponin I High Sens 43.9 H D Total Protein 6.5 Albumin 3.9 Globulin 2.6 Albumin/Globulin Ratio 1.5 Triglycerides Cholesterol LDL Cholesterol, Calc VLDL Cholesterol, Calc HDL Cholesterol Cholesterol/HDL Ratio Lipase SARS-CoV-2, RNA, NAAT NEGATIVE 08/03/22 08/03/22 08/03/22 06:03 06:03 06:03 WBC 7.69 RBC 4.88 Hgb 13.2 L Hct 40.3 MCV 82.6 MCH 27.0 MCHC 32.8 RDW Std Deviation 40.3 RDW Coeff of Zach 13.5 Plt Count 241 MPV 9.2 L Immature Gran % (Auto) 0.3 Neut % (Auto) 82.3 Lymph % (Auto) 13.0 [place] % (Auto) 3.0 Eos % (Auto) 1.0 Baso % (Auto) 0.4 Neut # (Auto) 6.33 Lymph # (Auto) 1.00 L [place] # (Auto) 0.23 L Eos # (Auto) 0.08 Baso # (Auto) 0.03 Immature Gran # (Auto) 0.02 PT INR APTT PTT Ratio D-Dimer VBG pH VBG pCO2 VBG pO2 VBG HCO3 VBG O2 Saturation VBG Base Excess Methemoglobin Sodium Potassium Chloride Carbon Dioxide Anion Gap BUN Creatinine Est Cr Clr Drug Dosing Est GFR ( Amer) Est GFR (Non-Af Amer) BUN/Creatinine Ratio Glucose POC Glucose Estimat Average Glucose 160 Hemoglobin A1c 7.2 H Calcium Phosphorus Magnesium Total Bilirubin AST ALT Alkaline Phosphatase Troponin I High Sens Total Protein Albumin Globulin Albumin/Globulin Ratio Triglycerides 128 Cholesterol 109 LDL Cholesterol, Calc 53 VLDL Cholesterol, Calc 26 HDL Cholesterol 30 Cholesterol/HDL Ratio 3.6 Lipase SARS-CoV-2, RNA, NAAT 08/03/22 08/03/22 08/03/22 07:52 08:49 11:58 WBC RBC Hgb Hct MCV MCH MCHC RDW Std Deviation RDW Coeff of Zach Plt Count MPV Immature Gran % (Auto) Neut % (Auto) Lymph % (Auto) [place] % (Auto) Eos % (Auto) Baso % (Auto) Neut # (Auto) Lymph # (Auto) [place] # (Auto) Eos # (Auto) Baso # (Auto) Immature Gran # (Auto) PT INR APTT PTT Ratio D-Dimer VBG pH VBG pCO2 VBG pO2 VBG HCO3 VBG O2 Saturation VBG Base Excess Methemoglobin Sodium Potassium Chloride Carbon Dioxide Anion Gap BUN Creatinine Est Cr Clr Drug Dosing Est GFR ( Amer) Est GFR (Non-Af Amer) BUN/Creatinine Ratio Glucose POC Glucose 156 H 159 H Estimat Average Glucose Hemoglobin A1c Calcium Phosphorus Magnesium Total Bilirubin AST ALT Alkaline Phosphatase Troponin I High Sens 25.9 H D Total Protein Albumin Globulin Albumin/Globulin Ratio Triglycerides Cholesterol LDL Cholesterol, Calc VLDL Cholesterol, Calc HDL Cholesterol Cholesterol/HDL Ratio Lipase SARS-CoV-2, RNA, NAAT 08/03/22 12:18 WBC RBC Hgb Hct MCV MCH MCHC RDW Std Deviation RDW Coeff of Zach Plt Count MPV Immature Gran % (Auto) Neut % (Auto) Lymph % (Auto) [place] % (Auto) Eos % (Auto) Baso % (Auto) Neut # (Auto) Lymph # (Auto) [place] # (Auto) Eos # (Auto) Baso # (Auto) Immature Gran # (Auto) PT INR APTT PTT Ratio D-Dimer VBG pH VBG pCO2 VBG pO2 VBG HCO3 VBG O2 Saturation VBG Base Excess Methemoglobin Sodium Potassium Chloride Carbon Dioxide Anion Gap BUN Creatinine Est Cr Clr Drug Dosing Est GFR ( Amer) Est GFR (Non-Af Amer) BUN/Creatinine Ratio Glucose POC Glucose 239 H Estimat Average Glucose Hemoglobin A1c Calcium Phosphorus Magnesium Total Bilirubin AST ALT Alkaline Phosphatase Troponin I High Sens Total Protein Albumin Globulin Albumin/Globulin Ratio Triglycerides Cholesterol LDL Cholesterol, Calc VLDL Cholesterol, Calc HDL Cholesterol Cholesterol/HDL Ratio Lipase SARS-CoV-2, RNA, NAAT (1) Chest pain Chest pain type: unspecified Qualified Code(s): R07.9 - Chest pain, unspecified
[2022-08-03] MEDS: METOPROLOL TARTRATE 25 MG TAB PO SCH (19:57)
[2022-08-03] MEDS: ROSUVASTATIN CALCIUM 20 MG TAB PO SCH (20:01)
[2022-08-04 06:38] LABS: Hematocrit (blood only) 36.7 % (40.1-51.0); Hemoglobin 11.9 g/dl (14.0-18.0); Mean Corpuscular Hemoglobin 26.9 pg (25.0-34.0); Mean Corpuscular Hgb Conc 32.4 g/dL (32.0-36.0); Mean Corpuscular Volume 82.8 fL (80.0-100.0); Mean Platelet Volume 9.3 fL (9.4-12.4); Platelet Count 233 K/uL (130-400); RDW Coefficient of Variation 13.5 % (11.5-14.5); RDW Standard Deviation 40.3 fL (36.4-46.3); Red Blood Count 4.43 M/uL (4.63-6.08); White Blood Count 14.61 K/ul (4.8-10.8)
[2022-08-04 07:16] LABS: Alanine Aminotransferase 8 U/L (7-52); Albumin Globulin Ratio 1.5 (0.9-2); Albumin Level 3.7 gm/dl (3.4-5.0); Alkaline Phosphatase 45 U/L (34-104); Anion Gap 8 (3-11); Aspartate Aminotransferase 11 U/L (13-39); BUN Creatinine Ratio 29.1 (10-20); Bilirubin,Total 0.4 mg/dl (0.2-1.0); Blood Urea Nitrogen 30 mg/dl (6-23); Calcium 9.2 mg/dl (8.5-10.1); Carbon Dioxide 23 mmol/L (21-32); Chloride 106 mmol/L (98-107); Est GFR (African American) 87.3 ml/min; Est GFR (Non-African American) 75.3 ml/min; Globulin 2.5 gm/dl (2.5-4.0); Glucose 170 mg/dl (70-99(Fasting)); Sodium 137 mmol/L (136-145); Total Protein 6.2 gm/dl (6.0-8.3)
--- NOTE | 2022-08-04 07:25 | Pharmacy Report ---
Pharmacy Glycemic Short Note 2 - Date of Service August 04, 2022 - Glycemic Short BSG Results (Last 24 hours): 08/03/22 08/03/22 08/03/22 07:52 08:49 12:18 Glucose POC Glucose 156 H 159 H 239 H 08/03/22 08/03/22 08/04/22 16:35 20:03 05:55 Glucose 170 H POC Glucose 180 H 197 H OUTPATIENT ANTIDIABETIC REGIMEN: * metformin 1 gm bid * A1c 7.2% ASSESSMENT: * 67 year old male admitted with chest pain. Cardiology consulted, possible stress test. Patient received 44 units of insulin yesterday, of which 15 units were basal to help cover solumedrol given on admission. * Fasting BSG 170 mg/dL - anticipate steroids wearing off now, will hold basal. Patient NPO this AM PLAN FOR INPATIENT GLYCEMIC CONTROL: * Hold outpatient oral diabetes medications * Basal insulin * Lantus - hold * Bolus insulin * NovoLog per scale ACHS or Q6hrs while NPO * Goal Range: Low 110 mg/dL - High 140 mg/dL * Correction Factor: 30 mg/dL/unit * Nutritional / Prandial insulin per carb ratio of 1 unit per 10 grams CHO consumed
[2022-08-04] MEDS: ENOXAPARIN INJ 40 MG/0.4 ML SYR SQ SCH (09:29)
[2022-08-04] MEDS: ASPIRIN 81 MG ECTAB PO SCH (09:29)
[2022-08-04] MEDS: UMECLIDINIUM BROMIDE 62.5MCG/BLISTER 7 PUFFS/INHALER INH SCH (09:30)
[2022-08-04] MEDS: INSULIN ASPART PER UNIT SC SCH ×4 (09:30→21:20)
[2022-08-04] MEDS: METOPROLOL TARTRATE 25 MG TAB PO SCH ×2 (09:30→19:54)
--- NOTE | 2022-08-04 09:59 | Cardiology Progress Note ---
Date of Service August 04, 2022 Assessment & Plan (1) Chest pain: Plan: -HS troponin I mildly elevated with measurements of 24.7--> 43.9 -->25.9-->20.7 pg/m. -Echo and CTA do not reflect finidings suggestive of valvular heart disease, but appears to have an LAD stent. Records from [facility] requested. -EKG 08/03 without acute changes. Echo reasuring with normal wall motion. -Plan to proceed with lexiscan nuclear stress as scheduling permits. I called the nuclear medicine department. Pending a possible cancellation later this afternoon, hoping to perform test later today. If not will advance diet today, make NPO after midnight again and will have test 08/05. -Continue ASA , metoprolol, rosuvastatin. -SQ lovenox for DVT prophylaxis. (2) COPD (chronic obstructive pulmonary disease): Plan: -Per hospitalist service. Admission and Anticipated Discharge Date Admission Date: August 03, 2022 Subjective Mr Kirk is seen in cardiology follow up if his chief complaint of chest discomfort. Pt interviewed with the assistance of the online interpretation service with the IPad device. Pt denies recurrent discomfort. Telemetry reveals stable SR in the 60s to 70s. Review of Systems Review of Systems: All systems reviewed & are unremarkable except as noted in HPI & below Physical Exam Constitutional: WD/WN, vitals as above Respiratory: normal respiratory effort, lungs clear to auscultation Cardiovascular: RRR, no murmur, no edema Gastrointestinal (Abdomen): normal bowel sounds, soft, nontender, no hepatosplenomegaly Neurologic: PERRL, EOMI, accommodation nl, no face palsy, no dysarthria Results & Data ([facility]) Vital Signs (Past 12 Hours) Vital Signs Temp Pulse Pulse Resp BP Pulse Ox O2 Del Method 08/04/22 06:43 36.8 C 71 18 100/50 L 92 Room Air 08/04/22 03:04 36.9 C 78 18 111/61 92 Room Air 08/04/22 00:10 36.7 C 76 20 100/55 L 92 Room Air 08/04/22 00:00 71 Laboratory Results Cardiac Enzymes 08/03/22 08/03/22 08/04/22 Range/Units 11:58 18:10 05:55 AST 11 L (13-39) U/L Troponin I High Sens 25.9 H D 20.7 H (0-20) pg/ml CBC 08/04/22 Range/Units 05:55 WBC 14.61 H (4.8-10.8) K/ul RBC 4.43 L (4.63-6.08) M/uL Hgb 11.9 L (14.0-18.0) g/dl Hct 36.7 L (40.1-51.0) % Plt Count 233 (130-400) K/uL Comprehensive Metabolic Panel 08/04/22 Range/Units 05:55 Sodium 137 (136-145) mmol/L Potassium 4.0 (3.5-5.1) mmol/L Chloride 106 (98-107) mmol/L Carbon Dioxide 23 (21-32) mmol/L BUN 30 H (6-23) mg/dl Creatinine 1.03 (0.6-1.4) mg/dl Glucose 170 H (70-99(Fasting)) mg/dl Calcium 9.2 (8.5-10.1) mg/dl AST 11 L (13-39) U/L ALT 8 (7-52) U/L Alkaline Phosphatase 45 (34-104) U/L Total Protein 6.2 (6.0-8.3) gm/dl Albumin 3.7 (3.4-5.0) gm/dl Intake and Output 08/03/22 08/04/22 08/04/22 22:59 06:59 14:59 Intake Total 360 / 1360 240 / 1360 Output Total 450 / 1500 600 / 1500 Balance -90 / -140 -360 / -140 Intake: Oral 360 / 1360 240 / 1360 Output: Urine 450 / 1500 600 / 1500 Other: Weight 89.9 kg Weight Measurement Method Built in [facility] (1) Chest pain Chest pain type: unspecified Qualified Code(s): R07.9 - Chest pain, unspecified
--- NOTE | 2022-08-04 13:40 | Hospitalist Progress Note ---
Date of Service August 04, 2022 Assessment & Plan (1) Elevated troponin: Plan: - Complains of multiple episode of chest pain 2 months prior to the admission and night before the admission. EKG shows normal sinus rhythm with first-degree AV block; no ST or T wave c hanges. -Troponin up trended from 12.9-43.9 and down trended. Echo shows EF of 60 to 65% with grade 1 diastolic dysfunction. Plan; Cardiology on board; patient is started on low-dose beta-steffen for anginal pain. He is also started on aspirin. Continue on his statin. -Patient to have Lexiscan tomorrow a.m. n.p.o. from midnight. (2) DM2 (diabetes mellitus, type 2): Plan: - A1c of 7.2 - takes metformin - will hold inpatient - started on lantus 5 units, SSI for now; POCT glucose within normal limit. - FSG AC+HS - diabetic diet (3) COPD (chronic obstructive pulmonary disease): Plan: - significant smoking history and evidence of COPD on CT - reportedly wheezing on presentation - CTAB on my exam - s/p IV solumedrol - will discontinue this and give Spiriva - albuterol prn - LLL opacity noted on CTA - will need follow up in about 6 months (4) Leukocytosis: Plan: WBC count up trended to 14. -No signs and symptoms of infection. Received high-dose steroid in the ED. -Monitor for fever. Monitor CBC. Plan DVT ppx: lovenox Code Status: Full code Dispo: telemetry Admission and Anticipated Discharge Date Admission Date: August 03, 2022 Subjective Patient seen and examined at bedside. He is comfortably lying on the bed awaiting for stress test. He denies any chest pain or palpitation. Video associate accountant used to communicate. Telemetry shows sinus rhythm with few conducted PACs. Review of Systems Review of Systems: All systems reviewed & are unremarkable except as noted in Subjective Physical Exam Physical Exam: Constitutional:L WD/WN, vitals as a arnoldo Eyes: PERRL, conjunctiva e normal, anicteri c sclerae ENMT: external ear and n ose normal, oropha rynx normal Neck: trachea midline, n o thyromegaly Respiratory: normal respiratory effort, lungs gigi ar to auscultation Cardiovascular:L RRR, no murmur, no edema Gastrointestinal ( Abdomen): normal bowel sound s, soft, nontender , no hepatosplenom egaly Musculoskeletal: no cyanosis or clu bbing, extremities motor strength 5/ 5 Skin: no rashes, warm an d dry Neurologic: patellar DTR's 2+ bilat, sensation i ntact and PERRL, E MARTIN, accommodation nl, no face palsy , no dysarthria Psychiatric: A+Ox3, euthymic af fec Results & Data Results & Data ([facility]) Vital Signs (Past 12 Hours) Vital Signs Temp Pulse Pulse Pulse Resp BP Pulse Ox 08/04/22 11:58 36.7 C 68 18 102/62 92 08/04/22 11:15 65 08/04/22 06:43 36.8 C 71 18 100/50 L 92 08/04/22 03:04 36.9 C 78 18 111/61 92 O2 Del Method 08/04/22 11:58 Room Air 08/04/22 11:15 08/04/22 06:43 Room Air 08/04/22 03:04 Room Air Laboratory Results Laboratory Results WBC 14.61 K/ul (4.8-10.8) H 08/04/22 05:55 RBC 4.43 M/uL (4.63-6.08) L 08/04/22 05:55 Hgb 11.9 g/dl (14.0-18.0) L 08/04/22 05:55 Hct 36.7 % (40.1-51.0) L 08/04/22 05:55 MCV 82.8 fL (80.0-100.0) 08/04/22 05:55 MCH 26.9 pg (25.0-34.0) 08/04/22 05:55 MCHC 32.4 g/dL (32.0-36.0) 08/04/22 05:55 RDW Std Deviation 40.3 fL (36.4-46.3) 08/04/22 05:55 RDW Coeff of Zach 13.5 % (11.5-14.5) 08/04/22 05:55 Plt Count 233 K/uL (130-400) 08/04/22 05:55 MPV 9.3 fL (9.4-12.4) L 08/04/22 05:55 Immature Gran % (Auto) 0.3 % 08/03/22 06:03 Neut % (Auto) 82.3 % 08/03/22 06:03 Lymph % (Auto) 13.0 % 08/03/22 06:03 [place] % (Auto) 3.0 % 08/03/22 06:03 Eos % (Auto) 1.0 % 08/03/22 06:03 Baso % (Auto) 0.4 % 08/03/22 06:03 Neut # (Auto) 6.33 K/uL (1.4-6.5) 08/03/22 06:03 Lymph # (Auto) 1.00 K/uL (1.2-3.4) L 08/03/22 06:03 [place] # (Auto) 0.23 K/uL (0.24-0.82) L 08/03/22 06:03 Eos # (Auto) 0.08 K/uL (0-0.50) 08/03/22 06:03 Baso # (Auto) 0.03 K/uL (0-0.2) 08/03/22 06:03 Immature Gran # (Auto) 0.02 K/uL (0.00-0.02) 08/03/22 06:03 PT 10.9 Seconds (9.0-12.0) 08/02/22 20:20 INR 1.0 (0.9-1.1) 08/02/22 20:20 APTT 29.1 Seconds (21.0-31.0) 08/02/22 20:20 PTT Ratio 1.1 08/02/22 20:20 D-Dimer 300 ug/L FEU (0-500) 08/02/22 20:20 VBG pH 7.40 (7.36-7.41) 08/02/22 21:02 VBG pCO2 39 mmHg (38-50) 08/02/22 21:02 VBG pO2 30 mmHg 08/02/22 21:02 VBG HCO3 24 mmol/L 08/02/22 21:02 VBG O2 Saturation 62.6 % 08/02/22 21:02 VBG Base Excess -0.5 mEq/L 08/02/22 21:02 Methemoglobin < 0.7 % (0.0-1.5) 09/04/22 21:02 Sodium 137 mmol/L (136-145) 08/04/22 05:55 Potassium 4.0 mmol/L (3.5-5.1) 08/04/22 05:55 Chloride 106 mmol/L (98-107) 08/04/22 05:55 Carbon Dioxide 23 mmol/L (21-32) 08/04/22 05:55 Anion Gap 8 (3-11) 08/04/22 05:55 BUN 30 mg/dl (6-23) H 08/04/22 05:55 Creatinine 1.03 mg/dl (0.6-1.4) 08/04/22 05:55 Est Cr Clr Drug Dosing Not Reportable 08/04/22 05:55 Est GFR ( Amer) 87.3 ml/min 08/04/22 05:55 Est GFR (Non-Af Amer) 75.3 ml/min 08/04/22 05:55 BUN/Creatinine Ratio 29.1 (10-20) H 08/04/22 05:55 Glucose 170 mg/dl (70-99(Fasting)) H 08/04/22 05:55 POC Glucose 123 mg/dl (70-99) H 08/04/22 11:46 Estimat Average Glucose 160 mg/dl 08/03/22 06:03 Hemoglobin A1c 7.2 % (4.5-5.6) H 08/03/22 06:03 Calcium 9.2 mg/dl (8.5-10.1) 08/04/22 05:55 Phosphorus 2.2 mg/dl (2.5-4.9) L 08/03/22 06:03 Magnesium 1.6 mg/dl (1.7-2.4) L 08/03/22 06:03 Total Bilirubin 0.4 mg/dl (0.2-1.0) 08/04/22 05:55 AST 11 U/L (13-39) L 08/04/22 05:55 ALT 8 U/L (7-52) 08/04/22 05:55 Alkaline Phosphatase 45 U/L (34-104) 08/04/22 05:55 Troponin I High Sens 20.7 pg/ml (0-20) H 08/03/22 18:10 Total Protein 6.2 gm/dl (6.0-8.3) 08/04/22 05:55 Albumin 3.7 gm/dl (3.4-5.0) 08/04/22 05:55 Globulin 2.5 gm/dl (2.5-4.0) 08/04/22 05:55 Albumin/Globulin Ratio 1.5 (0.9-2) 08/04/22 05:55 Triglycerides 128 mg/dl (0-150) 08/03/22 06:03 Cholesterol 109 mg/dl (0-200) 08/03/22 06:03 LDL Cholesterol, Calc 53 mg/dl 08/03/22 06:03 VLDL Cholesterol, Calc 26 mg/dl (0-30) 08/03/22 06:03 HDL Cholesterol 30 mg/dl 08/03/22 06:03 Cholesterol/HDL Ratio 3.6 (0-5) 08/03/22 06:03 Lipase 21 U/L (11-82) 08/02/22 20:20 SARS-CoV-2, RNA, NAAT NEGATIVE (NEGATIVE) 08/03/22 04:10 Impressions Chest X-Ray 08/02/22 20:40 XR chest 1V portable CLINICAL HISTORY: Chest Pain TECHNIQUE: Single frontal radiograph of the chest was obtained. Comparison: None available at the time of this dictation. FINDINGS: No lines and tubes are seen. The cardiomediastinal silhouette is normal. No airspace opacity is seen. There is bilateral hilar prominence. No evidence of pleural effusion or pneumothorax. IMPRESSION: 1. Mild pulmonary edema. 2. Prominent david may represent lymphadenopathy versus prominent pulmonary vasculature. If there is clinical concern, CT chest can be performed. ACT 112: Negative or not required by law. Electronically signed by: Shaun Bustamante M.D. 08/02/2022 9:46 PM Chest CTA 08/02/22 21:44 CT ANGIOGRAPHY OF THE CHEST, PULMONARY EMBOLUS PROTOCOL CLINICAL HISTORY: Atypical chest pain. Shortness of breath. Evaluate for pulmonary embolus. COMPARISON STUDY: Chest radiograph August 02, 2022. TECHNIQUE: Following IV administration of 120 mL of Optiray, helical axial images of the chest were obtained utilizing the pulmonary embolus protocol. Maximal intensity projections and sagittal and coronal reformats were viewed on an independent 3D workstation. IV contrast was administered without complication. Automated exposure control was utilized for the study. A dose lowering technique was utilized adhering to the principles of ALARA. CT DOSE: 503.88 mGy.cm FINDINGS: No pulmonary emboli are identified. There is no thoracic aortic dissection. No pericardial effusion is present. Borderline cardiomegaly is noted. There is a small hiatal hernia. No thoracic lymphadenopathy. Severe upper lobe predominant emphysema is present. There is no consolidation to suggest pneumonia. Subpleural opacities reflect atelectasis. There is mild interlobular septal thickening within the lower lobes. Calcified granuloma within the lingula is present. No pneumothorax or pleural effusion is present. No acute rib or thoracic spine fractures identified. Visualized portions of the upper abdomen are unremarkable. IMPRESSION: 1. No pulmonary emboli identified. 2. Severe upper lobe predominant emphysema. 3. Possible mild interstitial pulmonary edema. 4. Subpleural opacities consistent with atelectasis. No consolidation to suggest pneumonia. ACT 112: Negative or not required by law. Electronically signed by: Eduardo Fajardo M.D. 08/03/2022 8:55 AM
[2022-08-04] MEDS: ROSUVASTATIN CALCIUM 20 MG TAB PO SCH (19:54)
[2022-08-05 06:57] LABS: Hematocrit (blood only) 40.1 % (40.1-51.0); Hemoglobin 12.9 g/dl (14.0-18.0); Mean Corpuscular Hemoglobin 26.6 pg (25.0-34.0); Mean Corpuscular Hgb Conc 32.2 g/dL (32.0-36.0); Mean Corpuscular Volume 82.7 fL (80.0-100.0); Mean Platelet Volume 9.6 fL (9.4-12.4); Platelet Count 253 K/uL (130-400); RDW Coefficient of Variation 13.6 % (11.5-14.5); Red Blood Count 4.85 M/uL (4.63-6.08)
[2022-08-05 07:22] LABS: Anion Gap 5 (3-11); BUN Creatinine Ratio 31.1 (10-20); Blood Urea Nitrogen 32 mg/dl (6-23); Calcium 8.9 mg/dl (8.5-10.1); Carbon Dioxide 25 mmol/L (21-32); Chloride 109 mmol/L (98-107); Est GFR (African American) 87.3 ml/min; Est GFR (Non-African American) 75.3 ml/min; Glucose 115 mg/dl (70-99(Fasting)); Potassium 3.9 mmol/L (3.5-5.1); Sodium 139 mmol/L (136-145)
[2022-08-05] MEDS: INSULIN ASPART PER UNIT SC SCH ×4 (07:46→21:01)
[2022-08-05] MEDS: METOPROLOL TARTRATE 25 MG TAB PO SCH ×2 (10:00→21:39)
[2022-08-05] MEDS: UMECLIDINIUM BROMIDE 62.5MCG/BLISTER 7 PUFFS/INHALER INH SCH (10:00)
[2022-08-05] MEDS: ASPIRIN 81 MG ECTAB PO SCH (10:00)
[2022-08-05] MEDS: ENOXAPARIN INJ 40 MG/0.4 ML SYR SQ SCH (10:00)
--- NOTE | 2022-08-05 10:20 | Cardiology Progress Note ---
Date of Service August 05, 2022 Assessment & Plan (1) Chest pain: Plan: -HS troponin I mildly elevated with measurements of 24.7--> 43.9 -->25.9-->20.7 pg/m. -Echo and CTA do not reflect finidings suggestive of valvular heart disease, but appears to have an LAD stent. Records from [facility] arrived but Are eligible. I will contact medical records to see if we can try again. -EKG 08/03 without acute changes. Echo reassuring with normal wall motion. -Plan to proceed with lexiscan nuclear stress , tentatively scheduled for 11:30 am on 08/05/22. -Continue ASA , metoprolol, rosuvastatin. -SQ lovenox for DVT prophylaxis. (2) COPD (chronic obstructive pulmonary disease): Plan: -Per hospitalist service. Admission and Anticipated Discharge Date Admission Date: August 04, 2022 Subjective Patient seen in cardiology follow up of chief complain of chest pain. Interviewed with the assistance of the online translation service. Physical Exam Constitutional: WD/WN, vitals as above Respiratory: normal respiratory effort, lungs clear to auscultation Cardiovascular: RRR, no murmur, no edema Gastrointestinal (Abdomen): normal bowel sounds, soft, nontender, no hepatosplenomegaly Neurologic: PERRL, EOMI, accommodation nl, no face palsy, no dysarthria Results & Data ([facility]) Vital Signs (Past 12 Hours) Vital Signs Temp Pulse Pulse Resp BP Pulse Ox O2 Del Method 08/05/22 09:06 61 08/05/22 07:44 36.6 C 63 18 99/61 L 95 Room Air 08/05/22 04:00 36.7 C 64 20 109/70 92 Room Air 08/04/22 23:00 36.8 C 67 20 104/60 93 Room Air (1) Chest pain Chest pain type: unspecified Qualified Code(s): R07.9 - Chest pain, unspecifi ed
[2022-08-05] MEDS ORDERED: REGADENOSON 0.4 MG/5 ML SYR IV ONE (10:23)
--- NOTE | 2022-08-05 12:25 | Hospitalist Progress Note ---
Date of Service August 05, 2022 Assessment & Plan (1) Chest pain: Plan: Possible angina symptoms prior to arrival. Has a h/o CAD but cannot recall if he has had a stent placed or what his actual history is. Records are being requested. SErial troponin was 25-->44-->26-->21. Echo without acute wall motion abnormalities. Awaiting Lexiscan stress test today and final clearance from cardiology. (2) Elevated troponin: Plan: plan as above. (3) CAD (coronary artery disease): Plan: chronic, as above. Cont medical management with ASA, metoprolol, rosuvastatin. (4) DM2 (diabetes mellitus, type 2): Plan: - A1c of 7.2 - takes metformin - will hold inpatient - started on lantus 5 units, SSI for now; POCT glucose within normal limit. -glucose is at inpatient goal, cont current management. (5) COPD (chronic obstructive pulmonary disease): Plan: - significant smoking history and evidence of COPD on CT - reportedly wheezing on presentation - CTAB on my exam - s/p IV solumedrol - this was discontinued and he was started on Spiriva. -currently stable without wheezing (6) Leukocytosis: Plan: likely related to steroids. No signs/symptoms of infection. Plan DVT ppx: lovenox Code Status: Full code Dispo: dc to snf later today pending results of stress test and cardiology clearance. Cristina Villafuerte DO [facility] Hospitalist Admission and Anticipated Discharge Date Admission Date: August 04, 2022 Subjective Patient seen in cardiology follow up of chief complain of chest pain. Interviewed with the assistance of the online translation service. Pt currently declines chest pain, shortness of breath or any other symptoms at this time He denies any concerns and has no questions. He is doing well overall and awaiting his stress test this am. Review of Systems Review of Systems: All systems were reviewed and negative except as indicated on subjective above. Physical Exam Physical Exam: CONSTITUTIONAL: WNWD, vitals as above, generally well- appearing, NAD EYES: normal conjunctivae, no scleral icterus ENT: external ear and nose normal, MMM NECK: trachea midline, RESPIRATORY: clear to auscultation bilaterally, no crackles, rales or wheezes, normal respiratory effort CARDIOVASCULAR: regular rate and rhythm, S1 and 2 heard without murmurs, gallops or rubs, no JVD, no peripheral edema, CHEST: inspection of chest was normal GASTROINTESTINAL: soft, nontender, nondistended, no guarding MUSCULOSKELETAL: strength 5/5 throughout, head is normocephalic and atraumatic, neck supple, normal palpation of chest wall without tenderness SKIN: warm and dry, NEUROLOGIC: CN 2-12 grossly intact, no sensory deficit, normal cognition, normal speech, no tremor PSYCHIATRIC: alert cooperative and oriented to person, place and time. Euthy mark mood, makes good eye contact, language grossly intact, recent and remote memory grossly intact. Results & Data Results & Data ([facility]) Vital Signs (Past 12 Hours) Vital Signs Temp Pulse Pulse Resp BP Pulse Ox O2 Del Method 08/05/22 09:06 61 08/05/22 07:44 36.6 C 63 18 99/61 L 95 Room Air 08/05/22 04:00 36.7 C 64 20 109/70 92 Room Air Laboratory Results Short CBC 08/05/22 Range/Units 06:08 WBC 10.10 (4.8-10.8) K/ul Hgb 12.9 L (14.0-18.0) g/dl Hct 40.1 (40.1-51.0) % Plt Count 253 (130-400) K/uL BMP 08/05/22 06:08 Sodium 139 Potassium 3.9 Chloride 109 H Carbon Dioxide 25 BUN 32 H Creatinine 1.03 Glucose 115 H Calcium 8.9 Medications Administered Current Inpatient Medications Acetaminophen (Acetaminophen 325 Mg Tab) 650 mg PO Q4H PRN PRN Reason: Pain or Fever Stop: 09/02/22 03:35 Albuterol (Albuterol Hfa 8 Gm Inhaler) 2 puffs INH QID PRN PRN Reason: Shortness Of Breath Stop: 09/02/22 06:29 Aspirin (Aspirin 81 Mg Ectab) 81 mg PO DAILY HEBERT Stop: 09/03/22 08:59 Last Admin: 08/05/22 10:00 Dose: 81 mg Dextrose (Dextrose 50% 50 Ml Syringe) 25 - 50 ml IV UD PRN; Protocol PRN Reason: Hypoglycemia Protocol Stop: 09/02/22 04:13 Enoxaparin Sodium (Enoxaparin Inj 40 Mg/0.4 Ml Syr) 40 mg SQ Q24H HEBERT Stop: 09/02/22 09:44 Last Admin: 08/05/22 10:00 Dose: 40 mg Glucagon (Glucagon For Inj 1 Mg Vial) 1 mg SQ UD PRN; Protocol PRN Reason: Hypoglycemia Protocol Stop: 09/02/22 04:13 Glucose (Glucose 40% Gel 15 Gm Tube) 15 - 30 gm PO UD PRN; Protocol PRN Reason: Hypoglycemia Protocol Stop: 09/02/22 04:13 Glucose (Glucose 10 Tab/Tube) 4 - 8 tab PO UD PRN; Protocol PRN Reason: Hypoglycemia Treatment Stop: 09/02/22 04:13 Insulin Aspart (Insulin Aspart Per Unit) 0 units SC ACHS HEBERT Stop: 09/02/22 04:29 Last Admin: 08/05/22 07:46 Dose: Not Given Metoprolol Tartrate (Metoprolol Tartrate 25 Mg Tab) 12.5 mg PO BID HEBERT Stop: 09/02/22 20:59 Last Admin: 08/05/22 10:00 Dose: Not Given Miscellaneous (Carbohydrates For Hypoglycemia ) 15 - 30 gm PO UD PRN PRN Reason: Hypoglycemia Protocol Stop: 09/02/22 04:13 Nitroglycerin (Nitroglycerin Sl 0.4 Mg/Tab Tab) 0.4 mg SL UD PRN PRN Reason: Chest Pain Stop: 09/02/22 03:35 Polyethylene Glycol (Polyethylene (Miralax) 17 Gm Pack) 17 gm PO DAILY PRN PRN Reason: Constipation Stop: 09/02/22 03:35 Rosuvastatin Calcium (Rosuvastatin Calcium 20 Mg Tab) 40 mg PO HS [facility] Stop: 09/02/22 20:59 Last Admin: 08/04/22 19:54 Dose: 40 mg Umeclidinium [place] (Umeclidinium [place] 62.5mcg/Blister 7 Puffs/Inhaler) 1 puffs INH QAM HEBERT Stop: 09/02/22 08:59 Last Admin: 08/05/22 10:00 Dose: 1 puffs (1) Chest pain Chest pain type: unspecified Qualified Code(s): R07.9 - Chest pain, uns pecified
--- NOTE | 2022-08-05 13:43 | Myocardial Perfusion Study ---
Date of Service August 05, 2022 Myocardial Perfusion Study [facility] Myocardial Perfusion Study Report The patient received 10 mCi of tech 99M sestamibi and 1 hour later the patient underwent a resting SPECT study. The patient received Lexiscan per protocol and then received 29.6 mCi of intravenous tech 90 9M sestamibi and 30 minutes later underwent a repeat SPECT study. Reviewing the raw images, the study is adequate. There is some diaphragmatic attenuation of the inferior myocardial segments so when reviewing both the rest and stress images there is mild decreased perfusion of the inferior myocardium on both the rest and stress images. Gated analysis reveals normal left ventri cular function and estimated left ventricular ejection fraction of 60%. Gated analysis also suggest that the inferior myocardium is attenuated most likely from the diaphragm. In essence, the resting SPECT images have normal myocardial perfusion. Overall this pharmacologic nuclear stress test is negative for ischemia and denotes a low probability for hemodynamically significant coronary artery d isease.
[2022-08-05] MEDS: ROSUVASTATIN CALCIUM 20 MG TAB PO SCH (21:39)
[2022-08-06] MEDS: INSULIN ASPART PER UNIT SC SCH ×2 (08:45→12:47)
[2022-08-06] MEDS: ASPIRIN 81 MG ECTAB PO SCH (08:45)
[2022-08-06] MEDS: METOPROLOL TARTRATE 25 MG TAB PO SCH (08:46)
[2022-08-06] MEDS: UMECLIDINIUM BROMIDE 62.5MCG/BLISTER 7 PUFFS/INHALER INH SCH (08:47)
[2022-08-06] MEDS: ENOXAPARIN INJ 40 MG/0.4 ML SYR SQ SCH (08:47)
--- NOTE | 2022-08-06 10:03 | Cardiology Progress Note ---
Date of Service August 06, 2022 Assessment & Plan (1) Chest pain: Plan: -Received report of cardiac catheterization that took place at [facility] [place]. Per review of the report, patient presented there with a non-ST segment elevation myocardial infarction in 2016. He underwent cardiac catheterization performed via the right femoral artery with findings of a 100% occlusion of the mid left anterior descending coronary artery. He 30% proximal LAD stenosis was also noted. Luminal irregularities present in the circumflex and luminal irregularities noted in the right coronary artery. Patient underwent PCI and implantation of a bare-metal stent to the LAD in the same setting. Report describes that the stenosis which was 100% prior to intervention was 0% post procedure. Patient underwent Lexiscan nuclear stress test yesterday. Images reviewed independently, without evidence of inducible ischemia. The LAD territory was well visualized with normal perfusion. -Continue ASA , metoprolol, rosuvastatin. -Stable for discharge from the hospital from a cardiology perspective. Case discussed with Dr. Villafuerte. (2) COPD (chronic obstructive pulmonary disease): Plan: -Per hospitalist service. Admission and Anticipated Discharge Date Admission Date: August 04, 2022 Subjective Patient seen in cardiology follow-up of chief complaint of chest discomfort. Interview performed with the assistance of the online interpreter for the deaf. Patient without complaints. Telemetry reveals sinus rhythm in the 50s to 60s. Physical Exam Constitutional: WD/WN, vitals as above Respiratory: normal respiratory effort, lungs clear to auscultation Cardiovascular: RRR, no murmur, no edema Gastrointestinal (Abdomen): normal bowel sounds, soft, nontender, no hepatosplenomegaly Neurologic: PERRL, EOMI, accommodation nl, no face palsy, no dysarthria Results & Data ([facility]) Vital Signs (Past 12 Hours) Vital Signs Temp Pulse Pulse Resp BP Pulse Ox O2 Del Method 08/06/22 07:41 37.0 C 59 L 18 114/61 90 Room Air 08/06/22 07:14 59 L 08/06/22 04:03 36.8 C 59 L 18 107/68 93 Room Air 08/05/22 22:20 68 08/05/22 23:00 36.8 C 64 18 125/71 96 Room Air (1) Chest pain Chest pain type: unspecified Qualified Code(s): R07.9 - Chest pain, unspecified
--- NOTE | 2022-08-06 10:57 | Discharge Summary ---
Discharge Summary Date of Service August 06, 2022 Notes For Next Care Provider -advocate quitting tobacco use -outpatient pulmonary function tests -monitor response to inhaler therapy and new medications Medication Changes From Visit Start Incruse Ellipta Start metoprolol 12.5mg PO BID Admission HPI Per Admitting Provider The patient is a 67 year old man with pmh DM2, h/o 2 heart valve replacements/repairs, likely COPD who presented with complaint of chest pain that happened about 2 months ago. He reports that he was playing dominos when he got left sided chest pain and left arm pain. It resolved spontaneously. He also reported shortness of breath. On further questioning, he reports sometimes getting cehst pain after walking for about 8 minutes and sometimes with shortness of breath. These symptoms improve with rest, but they do not happen all the time. He denies nausea or vomiting, diaphoresis, LOC, light headedness with these episodes. He denies history of CO or stroke. He used to smoke cigarettes for many years but quit 1 year ago and then quit e cigarettes about 1 month ago. Denies leg swelling, orthopnea, pnd, coughing, fever or chills, diarrhea. Denies chest pain at this time or within the last 24 hours at least. In the ED, vitals were stable. Labs were significant for troponin 12.9-->24.7. ECG without ischemic changes x2. CXR with ?pulm edema, CTA chest without PE but evidence of COPD as LLL opacity that should be followed up. He was given steroids, DuoNeb and admitted to medicine for further management. Principal Dx & Hospital Course #1 = Principal Diagnosis (1) Chest pain: (2) Elevated troponin: (3) CAD (coronary artery disease): (4) DM2 (diabetes mellitus, type 2): (5) COPD (chronic obstructive pulmonary disease): Plan 67-year-old incarcerated male who is Gambian-speaking presents with anginal symptoms prior to arrival. He has a history of CAD with stent placement in the LAD. Serial troponin was 25, 44, 26, 21. Echo performed without acute wall motion abnormalities. Lexiscan stress test was performed and negative. Cardiology saw the patient during his hospital stay and recommends to continue aspirin, metoprolol, rosuvastatin. He hemodynamically stable without arrhythmia on telemetry during his admission. At time of discharge he was oxygenating well on room air and was symptom-free. He was discharged in stable condition with close primary care follow-up recommended. Of note based on his significant smoking history and evidence of COPD on CT he was initially started on IV Solu- Medrol which was discontinued. He appeared to be in no respiratory distress and had no wheezing during his stay despite possibly on admission. He was started on Incruse Ellipta at discharge. Outpatient PFTs should be pursued if not already completed. Discharge Exam Physical Exam Physical Exam: CONSTITUTIONAL: WNWD, vitals as above, generally well- appearing, NAD EYES: normal conjunctivae, no scleral icterus ENT: external ear and nose normal, MMM NECK: trachea midline, RESPIRATORY: clear to auscultation bilaterally, no crackles, rales or wheezes, normal respiratory effort CARDIOVASCULAR: regular rate and rhythm, S1 and 2 heard without murmurs, gallops or rubs, no JVD, no peripheral edema, CHEST: inspection of chest was normal GASTROINTESTINAL: soft, nontender, nondistended, no guarding MUSCULOSKELETAL: strength 5/5 throughout, head is normocephalic and atraumatic, neck supple, normal palpation of chest wall without tenderness SKIN: warm and dry, NEUROLOGIC: CN 2-12 grossly intact, no sensory deficit, normal cognition, normal speech, no tremor PSYCHIATRIC: alert cooperative and oriented to person, place and time. Euthymic mood, makes good eye contact, language grossly intact, recent and remote memory grossly intact. Updated Medication List Medication Instructions Recorded Confirmed Type albuterol sulfate 90 mcg/actuation 2 puff inhalation QID PRN 08/02/22 08/02/22 History aerosol inhaler (Proventil HFA) Shortness Of Breath aspirin 81 mg tablet,delayed 81 mg PO DAILY 08/02/22 08/02/22 History release metformin 1,000 mg tablet 1,000 mg PO BID 08/02/22 08/02/22 History naproxen 500 mg tablet 500 mg PO BID PRN Back Pain 08/02/22 08/02/22 History rosuvastatin 40 mg tablet 40 mg PO HS 08/02/22 08/02/22 History metoprolol tartrate 25 mg tablet 12.5 mg PO BID #60 tabs 08/06/22 Rx umeclidinium 62.5 mcg/actuation 1 inh inhalation QAM #30 ea 09/08/22 Rx blister powder for inhalation (Incruse Ellipta) Hospital Stay Data Consultations 08/03/22 03:13 ED Decision to Admit Stat 08/03/22 07:17 Consult Cardiology Routine Diagnostic Imagining Performed 08/02/22 21:44 CT angio chest PE protocol Urgent Pending Results Patient Have Any Pending Studies at Discharge: No Discharge Instructions Given to Patient (Per Discharging Provider) Please take all medications as instructed on discharge list below. It is recommended that you followup with your primary care physician in one week to ensure you are still doing well since discharge and to review your medications, check vitals and monitor labwork as needed. It was a pleasure taking care of you! Please call if you have any questions or problems. You can reach a [facility] hospitalist on duty at [facility] 24 hours a day by calling [phone]. Take care of yourself. Cristina Villafuerte, DO [facility] Hospitalist Total Time Total Time Spent Total Time Spent (In Minutes): 60
--- NOTE | 2022-08-13 11:20 | Coding Query ---
CHEST PAIN To promote full compliance with coding requirements relating to patient care physician participation is requested in all cases of final inspector movement assembly uncertainty. Please assist us with the question(s) . Pt admitted with chest pain, prior history CAD/ME. Please list a more specific chest pain diagnosis or cause of chest pain if known by placing an X within the parenthesis (x): ( ) Atypical Chest Pain ( ) Chest Wall Pain ( ) Midsternal Chest Pain ( ) Musculoskeletal Chest Pain ( ) Pleuritic Chest Pain ( ) Substernal Chest Pain ( ) Costochondral Chest Pain ( ) Other (please Specify) ( x) Unable to Determine Thank you Nick Bucio [facility]
== END 2022-08-06 14:16 | DRG 313 ==
LOC: ED 20:11 → EDINP 20:11 → SUATTDRO 08-03 03:36 → 2W 08-03 07:00
DX: R06.02 Shortness of breath; Z79.84 Long term (current) use of oral hypoglycemic drugs; Z95.2 Presence of prosthetic heart valve; Z79.82 Long term (current) use of aspirin; J98.11 Atelectasis; I25.10 Atherosclerotic heart disease of native coronary artery without angina pectoris; E11.9 Type 2 diabetes mellitus without complications; J44.1 Chronic obstructive pulmonary disease with (acute) exacerbation; Z87.891 Personal history of nicotine dependence; R07.9 Chest pain, unspecified; I25.2 Old myocardial infarction; R79.89 Other specified abnormal findings of blood chemistry; Z88.6 Allergy status to analgesic agent

== ENCOUNTER 2022-10-15 08:44 | Observation (INO) ==
[2022-10-15 09:38] LABS: Basophils # (auto) 0.05 K/uL (0-0.2); Basophils % (auto) 0.6 %; Eosinophils # (auto) 0.48 K/uL (0-0.50); Eosinophils % (auto) 5.8 %; Hematocrit (blood only) 46.1 % (40.1-51.0); Hemoglobin 15.1 g/dl (14.0-18.0); Immature Granulocytes # (auto) 0.04 K/uL (0.00-0.02); Immature Granulocytes % (auto) 0.5 %; Lymphocytes # (auto) 2.49 K/uL (1.2-3.4); Lymphocytes % (auto) 30.2 %; Mean Corpuscular Hgb Conc 32.8 g/dL (32.0-36.0); Mean Corpuscular Volume 82.3 fL (80.0-100.0); Mean Platelet Volume 9.3 fL (9.4-12.4); Monocytes # (auto) 0.85 K/uL (0.24-0.82); Monocytes % (auto) 10.3 %; Neutrophils # (auto) 4.34 K/uL (1.4-6.5); Neutrophils % (auto) 52.6 %; Platelet Count 262 K/uL (130-400); RDW Coefficient of Variation 14.5 % (11.5-14.5); RDW Standard Deviation 43.4 fL (36.4-46.3); White Blood Count 8.25 K/ul (4.8-10.8)
--- NOTE | 2022-10-15 09:44 | XRay Report ---
XR chest 1V portable CLINICAL HISTORY: Dyspnea TECHNIQUE: Single frontal radiograph of the chest was obtained. Comparison: Comparison is made to chest radiograph 08/02/2022 FINDINGS: No lines and tubes are seen. The cardiomediastinal silhouette is normal. Faint bibasilar airspace opa cities are seen. Mild pulmonary vascular congestion is seen. No evidence of pleural effusion or pneum othorax. IMPRESSION: 1. Faint bibasilar airspace opacities which may represent atelectasis, pneumonia, and/or aspiration. 2. Mild pulmonary vascular congestion compatible with mild pulmonary edema. ACT 112: Negative or not required by law. Electronically signed by: Shaun Bustamante M.D. 10/15/2022 9:43 AM
[2022-10-15 09:50] LABS: Partial Thromboplastin Time 28.8 Seconds (21.0-31.0); Prothrombin Time 10.9 Seconds (9.0-12.0)
[2022-10-15 09:52] LABS: Albumin Globulin Ratio 1.6 (0.9-2); Albumin Level 4.5 gm/dl (3.4-5.0); BUN Creatinine Ratio 15.7 (10-20); Bilirubin,Total 0.5 mg/dl (0.2-1.0); Calcium 9.8 mg/dl (8.5-10.1); Est GFR (African American) 76.4 ml/min; Est GFR (Non-African American) 65.9 ml/min; Globulin 2.9 gm/dl (2.5-4.0); Magnesium 1.9 mg/dl (1.7-2.4); Potassium 4.2 mmol/L (3.5-5.1); Total Protein 7.4 gm/dl (6.0-8.3)
[2022-10-15 09:56] LABS: Troponin I High Sensitivity 18.7 pg/ml (0-20)
[2022-10-15 10:11] LABS: Influenza A virus by PCR Negative (Neg); Influenza B virus by PCR Negative (Neg); RSV by PCR Negative (Neg); SARS CoV2 RNA(COVID-19)Cepheid NEGATIVE (Negative)
--- NOTE | 2022-10-15 10:23 | Emergency Department Note ---
Impression & Plan Retrosternal chest pain, SOB (shortness of breath), Paroxysmal A-fib ED Provider Note INFORMANT: Patient ED PROVIDER(S): Kieran Rhodes MD CHIEF COMPLAINT: Chest pain PLAN: Disposition: Admitted Condition: Good Outpatient prescription management: none Referral: None MEDICAL DECISION MAKING: Patient was evaluated and welding machine operator resistance service was utilized. He had unremarkable laboratory testing and his ECG shows a sinus rhythm. He was in A. fib during his pain episode but there was no tachycardia noted. He does have coronary disease. We did discuss the need for further management in the hospital given his history and the event. Initially the patient was reluctant but then agreed. Consultation was made with the hospitalist service. Patient was evaluated in the ER admitted for further management. Triage Nursing notes reviewed and agree them. Vital Signs: reviewed and remarkable for no significant abnormalities Differential diagnosis: Cardiac ischemia, aortic dissection, pulmonary embolism, pneumothorax, pneumonia, pericarditis, myocarditis, esophageal rupture, GERD, cholecystitis, pancreatitis, musculoskeletal, as well as other pathologies. Diagnostics interpreted by me: ECG: Twelve-lead ECG reveals normal sinus rhythm at [address] No ST elevation. Compared to present ECG the normal sinus rhythm has replaced A. fib. Cardiac Monitoring: Cardiac monitoring ordered by me: The patient was placed on continuous cardiac monitoring and observed. It revealed a normal sinus rhythm at 69 beats per minute without ectopy or evidence of dysrhythmia. Imaging studies: Chest x-ray. Findings: A chest x-ray was performed and revealed no pneumothorax, effusion, infiltrate, pulmonary edema, free air under the diaphragm, or wide mediastinum. Impression: No acute disease. HPI: The patient is a 67 year old male who presents to the Emergency Room with complaints of chest pain, retrosternal. This started this morning and is currently resolved. He went to the [facility] and was found to be in new onset afib. The patient also notes the following associated symptoms, left shoulder and arm pain. The patient has been given oxygen for relieving factors. Current pain is rated as 0/10. Episode lasted about 30 min. Pt denies LOC, headache, fevers, chills, diaphoresis, visual changes, neck pain, chest pain, breathing difficulties, nausea, vomiting, abdominal pain, back pain, melena, hematochezia, urinary symptoms, numbness, weakness, lymphadenopathy, akin h, or other complaints. ROS: See above HPI for pertinent positives & negatives. A total of 10 systems reviewed and were otherwise negative. PAST MEDICAL HISTORY:See Below , DM, COPD PAST SURGICAL HISTORY:See Below, FAMILY HISTORY:See Below SOCIAL HISTORY:See Below, quit smoking HOME MEDICATIONS:See Below ALLERGIES:See Below VITALS:See Below PHYSICAL EXAMINATION: GENERAL: Awake, alert, well-appearing, in no distress HENT: Normocephalic, atraumatic. Oropharynx unremarkable. EYES: Normal conjunctiva. Sclera non-icteric. NECK: Inspection normal. Non-tender. Supple. No nuchal rigidity. FROM. No masses. RESPIRATORY: Clear to auscultation. No wheezes. No rales. Normal respiratory effort. CARDIAC: Normal rate. Normal rhythm. No murmurs. No rubs. Extremities warm and well perfused. Pulses equal. No JVD. GI: Soft, non-distended. No tenderness to palpation. No rebound or guarding. No masses. RECTAL: Deferred. MUSCULOSKELETAL: Atraumatic. Chest examination reveals no tenderness. The back is symmetrical on inspection without obvious abnormality. There is no CVA tenderness to palpation. No joint edema. LOWER EXTREMITIES: Calves are equal size bilaterally and non-tender. No edema. No discoloration. NEURO: Normal sensorium. No sensory or motor deficits noted. SKIN: No rash or jaundice noted. Kieran Rhodes MD Past Med/Surg History Medical History CAD (coronary artery disease) 2016 - NSTEMI s/p BMS to LAD COPD (chronic obstructive pulmonary disease) DM2 (diabetes mellitus, type 2) HTN (hypertension) Surgical History No significant past surgical history Social History Smoking Status: Former smoker Second Hand Exposure: No; Hx Alcohol Use: Yes (INMATE) Alcohol type: hard liquor Hx Substance Use: Yes (INMATE) Preferred Language: Bulgarian Communication Ability: Effective Communication Tools: IPad Sleeve Setter Lockstitch Required: Yes Beliefs That Will Affect Care: None marital status: Single Current Living Situation: Other How many Children do You have: 0 Feels Safe at Home: Yes Assistive Devices: None Allergies Allergies Allergy/AdvReac Type Severity Reaction Status Date / Time Fish Containing Products Allergy Unknown ON MED Verified 10/15/22 09:01 BENSON--ROXANNE BANNER Home Meds Home Medications Medication Instructions Recorded Confirmed albuterol sulfate 90 mcg/actuation 2 puff inhalation QID PRN 08/02/22 10/15/22 aerosol inhaler (Proventil HFA) Shortness Of Breath aspirin 81 mg tablet,delayed 81 mg PO DAILY 08/02/22 10/15/22 release rosuvastatin 40 mg tablet 40 mg PO HS 08/02/22 10/15/22 clotrimazole 1 % topical cream 1 applic topical BID 10/15/22 10/15/22 Previous Rx's Medication Instructions Recorded metoprolol tartrate 25 mg tablet 12.5 mg PO BID #60 tabs 08/06/22 umeclidinium 62.5 mcg/actuation 1 inh inhalation QAM #30 ea 08/06/22 blister powder for inhalation (Incruse Ellipta) metformin 1,000 mg tablet 1,000 mg PO BID #30 tabs 10/16/22 pantoprazole 40 mg tablet,delayed 40 mg PO DAILY 30 days #30 tabs 10/16/22 release Results & Data (ED) Vital Signs Vital Signs - 24 hr 10/15/22 08:58 10/15/22 09:08 10/15/22 08:55 Temperature 36.9 C Temperature Source Oral Pulse Rate 66 66 Respiratory Rate 18 18 Respiratory Depth Normal Respiratory Pattern Regular Blood Pressure 135/67 135/67 Blood Pressure Mean 89 89 Pulse Oximetry 96 95 Oxygen Delivery Method Room Air Room Air Sepsis Recent Fever Within 48 Hours No Sepsis New/Unexplained Change in Mental Status No Sepsis Action Taken by Nursing No Action Required 10/15/22 08:55 10/15/22 09:00 10/15/22 09:00 Temperature Temperature Source Pulse Rate 66 67 Respiratory Rate 24 25 H Respiratory Depth Respiratory Pattern Blood Pressure 117/69 Blood Pressure Mean 85 Pulse Oximetry Oxygen Delivery Method Sepsis Recent Fever Within 48 Hours Sepsis New/Unexplained Change in Mental Status Sepsis Action Taken by Nursing Laboratory Data Result diagrams: 10/16/22 04:38 10/16/22 04:38 Lab Results 10/15/22 10/15/22 10/15/22 Range/Units 08:52 08:52 08:52 WBC 8.25 (4.8-10.8) K/ul RBC 5.60 (4.63-6.08) M/uL Hgb 15.1 (14.0-18.0) g/dl Hct 46.1 (40.1-51.0) % MCV 82.3 (80.0-100.0) fL MCH 27.0 (25.0-34.0) pg MCHC 32.8 (32.0-36.0) g/dL RDW Std Deviation 43.4 (36.4-46.3) fL RDW Coeff of Zach 14.5 (11.5-14.5) % Plt Count 262 (130-400) K/uL MPV 9.3 L (9.4-12.4) fL Immature Gran % (Auto) 0.5 % Neut % (Auto) 52.6 % Lymph % (Auto) 30.2 % [place] % (Auto) 10.3 % Eos % (Auto) 5.8 % Baso % (Auto) 0.6 % Neut # (Auto) 4.34 (1.4-6.5) K/uL Lymph # (Auto) 2.49 (1.2-3.4) K/uL [place] # (Auto) 0.85 H (0.24-0.82) K/uL Eos # (Auto) 0.48 (0-0.50) K/uL Baso # (Auto) 0.05 (0-0.2) K/uL Immature Gran # (Auto) 0.04 H (0.00-0.02) K/uL PT 10.9 (9.0-12.0) Seconds INR 1.0 (0.9-1.1) APTT 28.8 (21.0-31.0) Seconds PTT Ratio 1.0 Sodium 138 (136-145) mmol/L Potassium 4.2 (3.5-5.1) mmol/L Chloride 105 (98-107) mmol/L Carbon Dioxide 25 (21-32) mmol/L Anion Gap 8 (3-11) BUN 18 (6-23) mg/dl Creatinine 1.15 (0.6-1.4) mg/dl Est Cr Clr Drug Dosing 68.0 ml/min Est GFR ( Amer) 76.4 ml/min Est GFR (Non-Af Amer) 65.9 ml/min BUN/Creatinine Ratio 15.7 (10-20) Glucose 153 H (70-99(Fasting)) mg/dl Calcium 9.8 (8.5-10.1) mg/dl Magnesium 1.9 (1.7-2.4) mg/dl Total Bilirubin 0.5 (0.2-1.0) mg/dl AST 15 (13-39) U/L ALT 11 (7-52) U/L Alkaline Phosphatase 57 (34-104) U/L Troponin I High Sens 18.7 (0-20) pg/ml Total Protein 7.4 (6.0-8.3) gm/dl Albumin 4.5 (3.4-5.0) gm/dl Globulin 2.9 (2.5-4.0) gm/dl Albumin/Globulin Ratio 1.6 (0.9-2) TSH (0.300-4.500) uIu/ml SARS-CoV-2 (PCR) (Negative) Influenza Type A (PCR) (Neg) Influenza Type B (PCR) (Neg) RSV (RT-PCR) (Neg) 10/15/22 10/15/22 Range/Units 08:52 09:18 WBC (4.8-10.8) K/ul RBC (4.63-6.08) M/uL Hgb (14.0-18.0) g/dl Hct (40.1-51.0) % MCV (80.0-100.0) fL MCH (25.0-34.0) pg MCHC (32.0-36.0) g/dL RDW Std Deviation (36.4-46.3) fL RDW Coeff of Zach (11.5-14.5) % Plt Count (130-400) K/uL MPV (9.4-12.4) fL Immature Gran % (Auto) % Neut % (Auto) % Lymph % (Auto) % [place] % (Auto) % Eos % (Auto) % Baso % (Auto) % Neut # (Auto) (1.4-6.5) K/uL Lymph # (Auto) (1.2-3.4) K/uL [place] # (Auto) (0.24-0.82) K/uL Eos # (Auto) (0-0.50) K/uL Baso # (Auto) (0-0.2) K/uL Immature Gran # (Auto) (0.00-0.02) K/uL PT (9.0-12.0) Seconds INR (0.9-1.1) APTT (21.0-31.0) Seconds PTT Ratio Sodium (136-145) mmol/L Potassium (3.5-5.1) mmol/L Chloride (98-107) mmol/L Carbon Dioxide (21-32) mmol/L Anion Gap (3-11) BUN (6-23) mg/dl Creatinine (0.6-1.4) mg/dl Est Cr Clr Drug Dosing ml/min Est GFR ( Amer) ml/min Est GFR (Non-Af Amer) ml/min BUN/Creatinine Ratio (10-20) Glucose (70-99(Fasting)) mg/dl Calcium (8.5-10.1) mg/dl Magnesium (1.7-2.4) mg/dl Total Bilirubin (0.2-1.0) mg/dl AST (13-39) U/L ALT (7-52) U/L Alkaline Phosphatase (34-104) U/L Troponin I High Sens (0-20) pg/ml Total Protein (6.0-8.3) gm/dl Albumin (3.4-5.0) gm/dl Globulin (2.5-4.0) gm/dl Albumin/Globulin Ratio (0.9-2) TSH 3.010 (0.300-4.500) uIu/ml SARS-CoV-2 (PCR) NEGATIVE (Negative) Influenza Type A (PCR) Negative (Neg) Influenza Type B (PCR) Negative (Neg) RSV (RT-PCR) Negative (Neg) Administered Medications Discontinued Medications Aspirin (Aspirin 81 Mg Ectab) 81 mg PO DAILY HEBERT Stop: 11/15/22 08:59 Last Admin: 10/16/22 08:32 Dose: 81 mg Documented By: REINALDO Enoxaparin Sodium (Enoxaparin Inj 40 Mg/0.4 Ml Syr) 40 mg SQ Q24H HEBERT Stop: 11/14/22 14:59 Last Admin: 10/15/22 16:30 Dose: 40 mg Documented By: REINALDO Fentanyl Citrate (Fentanyl Citrate 100 Mcg/2 Ml Vial) Confirm Administered Dose 100 mcg .ROUTE .STK-MED ONE Stop: 10/16/22 10:27 Last Admin: 10/16/22 10:53 Dose: Not Given Documented By: JOHNNY Heparin Sodium (Porcine) (Heparin (Porcine) 1000 Unit/Ml 10 Ml (Claim Taker Use Only)) Confirm Administered Dose 10,000 units .ROUTE .STK-MED ONE Stop: 10/16/22 10:27 Last Admin: 10/16/22 10:54 Dose: 2,000 units Documented By: JOHNNY Heparin Sodium/Sodium Chloride (Heparin In Nss Infusion 1000 Unit/500 Ml (2 U/Ml) Bag) Confirm Administered Dose 1,000 units IV .STK-MED ONE Stop: 10/16/22 10:27 Last Admin: 10/16/22 10:54 Dose: 1,000 units Documented By: JOHNNY Heparin Sodium/Dextrose (Heparin Sodium/Dextrose) 25,000 units in 500 mls @ 25 mls/hr IV .Q20H HEBERT; Protocol Stop: 11/14/22 18:29 Last Titration: 10/16/22 09:07 Dose: 0 units/hr, 0 mls/hr Documented By: REINALDO Co-signed By: [facility] Titration: 10/16/22 06:57 Dose: 1,250 units/hr, 25 mls/hr Documented By: REINALDO Co-signed By: MAGDALENO Titration: 10/16/22 05:54 Dose: 1,250 units/hr, 25 mls/hr Documented By: MAGDALENO Co-signed By: MILY Admin: 10/15/22 19:56 Dose: 1,350 units/hr, 27 mls/hr Documented By: MAGDALENO Co-signed By: MILY Sodium Chloride (Nss 1000ml) 1,000 mls @ 1 mls/hr IV .Q24H HEBERT Stop: 11/15/22 07:59 Last Admin: 10/16/22 08:33 Dose: 87 mls/hr Documented By: REINALDO Insulin Aspart (Insulin Aspart Per Unit) 0 units SC ACHS HEBERT Stop: 11/14/22 16:29 Last Admin: 10/16/22 12:40 Dose: 4 units Documented By: REINALDO Co-signed By: [facility] Admin: 10/16/22 08:42 Dose: Not Given Documented By: Admin: 10/15/22 22:20 Dose: Not Given Documented By: Admin: 10/15/22 17:15 Dose: 3 units Documented By: REINALDO Co-signed By: MADIE Metoprolol Tartrate (Metoprolol Tartrate 25 Mg Tab) 12.5 mg PO BID HEBERT Stop: 11/14/22 20:59 Last Admin: 10/16/22 08:34 Dose: 12.5 mg Documented By: Admin: 10/15/22 22:30 Dose: 12.5 mg Documented By: MAGDALENO Midazolam HCl (Midazolam Hcl 1 Mg/Ml 2ml Vial) Confirm Administered Dose 2 mg .ROUTE .STK-MED ONE Stop: 10/16/22 10:27 Last Increment: 10/16/22 10:54 Dose: 1 mg Documented By: JOHNNY Nicardipine HCl (Nicardipine Hcl Inj 2.5 Mg/Ml 10 Ml Amp) Confirm Administered Dose 25 mg .ROUTE .STK-MED ONE Stop: 10/16/22 10:27 Last Admin: 10/16/22 10:54 Dose: 25 mg Documented By: JOHNNY Nitroglycerin/Dextrose (Nitroglycerin/D5w 100mcg/Ml 20ml Syr) Confirm Administered Dose 2,000 mcg .ROUTE .STK-MED ONE Stop: 10/16/22 10:28 Last Admin: 10/16/22 10:54 Dose: 2,000 mcg Documented By: JOHNNY Pantoprazole Sodium (Pantoprazole 40 Mg Tab) 40 mg PO DAILY HEBERT Stop: 11/15/22 08:59 Last Admin: 10/16/22 08:32 Dose: 40 mg Documented By: REINALDO Rosuvastatin Calcium (Rosuvastatin Calcium 20 Mg Tab) 40 mg PO HS HEBERT Stop: 11/14/22 20:59 Last Admin: 10/15/22 22:30 Dose: 40 mg Documented By: MAGDALENO Umeclidinium Milfay (Umeclidinium Milfay 62.5mcg/Blister 7 Puffs/Inhaler) 1 puffs INH QAM HEBERT Stop: 11/15/22 08:59 Last Admin: 10/16/22 08:32 Dose: 1 puffs Documented By: REINALDO Imaging Data Radiologist's Impression: Chest X-Ray 10/15/22 09:06 XR chest 1V portable CLINICAL HISTORY: Dyspnea TECHNIQUE: Single frontal radiograph of the chest was obtained. Comparison: Comparison is made to chest radiograph 08/02/2022 FINDINGS: No lines and tubes are seen. The cardiomediastinal silhouette is normal. Faint bibasilar airspace opacities are seen. Mild pulmonary vascular congestion is seen. No evidence of pleural effusion or pneumothorax. IMPRESSION: 1. Faint bibasilar airspace opacities which may represent atelectasis, pneumonia, and/or aspiration. 2. Mild pulmonary vascular congestion compatible with mild pulmonary edema. ACT 112: Negative or not required by law. Electronically signed by: Shaun Bustamante M.D. 10/15/2022 9:43 AM Discharge Plan Visit Data Chief Complaint: Chest Pain Stated Complaint: SOB, CHEST PAIN ED Provider: Kieran Rhodes Discharge Problem: Retrosternal chest pain, SOB (shortness of breath), Paroxysmal A-fib Patient Disposition: Admitted As Inpatient Discharge Instructions Interventions: ED Discharge Assessment Last Done: 10/15/22 11:35
--- NOTE | 2022-10-15 12:20 | Electrocardiogram Report ---
Test Reason : Blood Pressure : / mmHG Vent. Rate : 065 BPM Atrial Rate : 065 BPM P-R Int : 178 ms QRS Dur : 094 ms QT Int : 408 ms P-R-T Axes : 029 051 025 degrees QTc Int : 424 ms Normal sinus rhythm Normal ECG When compared with ECG of 03-AUG-2022 03:56, No significant change was found Confirmed by Curry Casarez ([id number]) on 10/15/2022 12:20:22 PM Referred By: REFERRED SELF Confirmed By:Curry Casarez
[2022-10-15] MEDS ORDERED: GLUCOSE 10 TAB/TUBE PO PRN (12:59)
[2022-10-15] MEDS ORDERED: GLUCOSE 40% GEL 15 GM TUBE PO PRN (12:59)
[2022-10-15] MEDS ORDERED: DEXTROSE 50% 50 ML SYRINGE IV PRN (12:59)
[2022-10-15] MEDS ORDERED: GLUCAGON FOR INJ 1 MG VIAL SQ PRN (12:59)
[2022-10-15] MEDS ORDERED: CARBOHYDRATES FOR HYPOGLYCEMIA PO PRN (12:59)
--- NOTE | 2022-10-15 13:06 | History & Physical Report ---
Date of Service October 15, 2022 Assessment & Plan (1) CAD (coronary artery disease): (2) Chest pain: Plan: Admit to telemetry Patient presenting from [facility] for evaluation of chest discomfort. EKG obtained at facility concerning for atrial fibrillation however appears to be NSR with PACs. Chest pain resolved with application of oxygen, no further recurrences of chest pain. In the ED, initial HS troponin negative, EKG demonstrating NSR History of CAD, s/p BMS to LAD in 2016 Underwent pharmacologic nuclear stress test 07/2022 that was negative Consider GERD as a contributing factor to patient's symptoms today. Trend troponin Continue [employer] ASA, statin, metoprolol Cardiology consult, case discussed with Dr. Pacheco (3) DM2 (diabetes mellitus, type 2): Plan: Hgb A1c 7.2 07/2022 Hold metformin and utilize NovoLog per protocol while hospitalized (4) COPD (chronic obstructive pulmonary disease): Plan: No signs of acute exacerbation, continue home inhalers (5) DVT prophylaxis: Plan: SQ Lovenox Admission and Anticipated Discharge Date Admission Date: October 15, 2022 History of Present Illness Chief Complaint: Chest Pain Primary Care Provider: [facility] 67 year old male with PMH CAD s/p NSTEMI and BMS to LAD, HTN, COPD, DM type II, and other problems listed below who presents to the ED from [facility] for evaluation of chest pain. Patient is primarily Albanian-speaking, therefore translation service via iPad was used during interview. Patient reports that around 0640 he developed a midsternal chest pain that radiated into the left arm. Patient describes the discomfort as a burning. Symptoms lasted for about 20 minutes and resolved once oxygen was applied. EKG was obtained at [facility] and there was a concern for atrial fibrillation so patient was sent to the ED for further evaluation. Patient reports associated shortness of breath. No nausea, diaphoresis, palpitations, or lightheadedness. Patient reports he other mcdonald has been feeling well recently. Last episode of chest pain was in July when he was admitted for chest pain work up. No recent illnesses, fever, or chills. Denies abdominal pain, vomiting, or diarrhea. No urinary symptoms. In the ED, EKG demonstrates NSR and initial HS trop is negative. Vitals are stable. Allergies Allergy/AdvReac Type Severity Reaction Status Date / Time Fish Containing Products Allergy Unknown ON MED Verified 10/15/22 09:01 [facility] Medications Medication Instructions Recorded Confirmed Type albuterol sulfate 90 mcg/actuation 2 puff inhalation QID PRN 08/02/22 10/15/22 History aerosol inhaler (Proventil HFA) Shortness Of Breath aspirin 81 mg tablet,delayed 81 mg PO DAILY 08/02/22 10/15/22 History release metformin 1,000 mg tablet 1,000 mg PO BID 08/02/22 10/15/22 History naproxen 500 mg tablet 500 mg PO BID PRN Back Pain 08/02/22 10/15/22 History rosuvastatin 40 mg tablet 40 mg PO HS 08/02/22 10/15/22 History metoprolol tartrate 25 mg tablet 12.5 mg PO BID #60 tabs 08/06/22 10/15/22 Rx umeclidinium 62.5 mcg/actuation 1 inh inhalation QAM #30 ea 08/06/22 10/15/22 Rx blister powder for inhalation (Incruse Ellipta) clotrimazole 1 % topical cream 1 applic topical BID 10/15/22 10/15/22 History omeprazole 20 mg capsule,delayed 20 mg PO DAILY 10/15/22 10/15/22 History release Past Med/Surg History Medical History CAD (coronary artery disease) 2016 - NSTEMI s/p BMS to LAD COPD (chronic obstructive pulmonary disease) DM2 (diabetes mellitus, type 2) HTN (hypertension) Surgical History No significant past surgical history Social History Smoking Status: Former smoker Second Hand Exposure: No; Hx Alcohol Use: Yes (INMATE) Alcohol type: hard liquor Hx Substance Use: Yes (INMATE) Preferred Language: Albanian Communication Ability: Effective Communication Tools: IPad Netbackup Admin Required: Yes Beliefs That Will Affect Care: None marital status: Single Current Living Situation: Other How many Children do You have: 0 Other Information That Helps Us Care for You: No Feels Safe at Home: Yes Safety Concerns: Feels Safe At This Time Assistive Devices: None Review of Systems Review of Systems: ROS per HPI, all other systems reviewed and negative Physical Exam Constitutional: WD/WN, vitals as above Eyes: PERRL, conjunctivae normal, anicteric sclerae ENMT: external ear and nose normal, oropharynx normal Respiratory: normal respiratory effort, lungs clear to auscultation Cardiovascular: Rate/Rhythm: regular rate and regular rhythm Vessels: normal peripheral pulses Extremities: no edema Gastrointestinal (Abdomen): normal bowel sounds, soft, nontender, no hepatosplenomegaly Musculoskeletal: no cyanosis or clubbing, extremities motor strength 5/5 Skin: no rashes, warm and dry Neurologic: PERRL, EOMI, accommodation nl, no face palsy, no dysarthria Psychiatric: A+Ox3, euthymic affect Results & Data Results & Data ([facility]) Vital Signs (Past 12 Hours) Vital Signs Temp Pulse Pulse Resp BP BP Pulse Ox 10/15/22 12:29 36.9 C 82 20 117/64 95 10/15/22 11:03 36.9 C 84 18 119/74 94 10/15/22 09:00 67 25 H 10/15/22 09:00 117/69 10/15/22 08:55 66 24 10/15/22 08:55 135/67 10/15/22 09:08 66 18 95 10/15/22 08:58 36.9 C 66 18 135/67 96 O2 Del Method 10/15/22 12:29 Room Air 10/15/22 11:03 Room Air 10/15/22 09:00 10/15/22 09:00 10/15/22 08:55 10/15/22 08:55 10/15/22 09:08 Room Air 10/15/22 08:58 Room Air Laboratory Results Short CBC 10/15/22 Range/Units 08:52 WBC 8.25 (4.8-10.8) K/ul Hgb 15.1 (14.0-18.0) g/dl Hct 46.1 (40.1-51.0) % Plt Count 262 (130-400) K/uL BMP 10/15/22 08:52 Sodium 138 Potassium 4.2 Chloride 105 Carbon Dioxide 25 BUN 18 Creatinine 1.15 Glucose 153 H Calcium 9.8 Liver Function 11/17/22 Range/Units 08:52 Total Bilirubin 0.5 (0.2-1.0) mg/dl AST 15 (13-39) U/L ALT 11 (7-52) U/L Alkaline Phosphatase 57 (34-104) U/L Albumin 4.5 (3.4-5.0) gm/dl Diagnostic Findings Chest X-Ray 10/15/22 09:06 XR chest 1V portable CLINICAL HISTORY: Dyspnea TECHNIQUE: Single frontal radiograph of the chest was obtained. Comparison: Comparison is made to chest radiograph 08/02/2022 FINDINGS: No lines and tubes are seen. The cardiomediastinal silhouette is normal. Faint bibasilar airspace opacities are seen. Mild pulmonary vascular congestion is seen. No evidence of pleural effusion or pneumothorax. IMPRESSION: 1. Faint bibasilar airspace opacities which may represent atelectasis, pneumonia, and/or aspiration. 2. Mild pulmonary vascular congestion compatible with mild pulmonary edema. ACT 112: Negative or not required by law. Electronically signed by: Shaun Bustamante M.D. 10/15/2022 9:43 AM Code Status & VTE Plan Code Status Patient is a full code as per my discussion with him. VTE Prophylaxis Plan VTE Prophylaxis will be ordered: Yes Supervising Physician Co-Signing Physician Notes I have seen and examined the patient and have discussed the case with the provider above. I agree with the assessment and plan as stated. 67 yo M presents with reports of substernal chest pain this morning that was described as a burning sensation. It lasted until he went to medical and received oxygen. He is not hypoxic and doesn't report any shortness of breath. He drinks 4 cups of instant coffee daily. There were reports of possible afib on EKG which is not a diagnosis he has had previously. This is debatable per cardiology and he remains in sinus rhythm on telemetry. He denies any chest pain today after the episode this morning and has had no chest pain symptoms since last July when he was hospitalized. His troponin today was initially 18.7 and now is 87. Heparin has been started. He is planned for heart cath in the morning per cardiology. Physical exam is unremarkable. This interview was conducted with the use of a video pet supplies salesperson. DO Christo (1) Chest pain Chest pain type: unspecified Qualified Code(s): R07.9 - Chest pain, unspecified
--- NOTE | 2022-10-15 13:53 | Cardiology Consultation ---
Date of Consultation October 15, 2022 Assessment & Plan (1) Chest pain: (2) DM2 (diabetes mellitus, type 2): (3) COPD (chronic obstructive pulmonary disease): (4) CAD (coronary artery disease): (5) Stented coronary artery: Plan The patient's first EKG and first set of high-sensitivity troponins are negative. He is currently pain-free. At this point I would continue his current medications. Allow additional cardiac markers to be drawn. Recheck his EKG in the morning. I would keep the patient n.p.o. after midnight until we decide if he is going to have further testing whether that be noninvasive or invasive. History of Present Illness Attending Physician: Cristina Villafuerte, History of Present Illness This is a 67-year-old Palestinian-speaking male who is currently incarcerated. He has a history according to records of a previous bare-metal stent in his LAD placed in [facility] in 2015. He was last admitted here in July of this year with chest pain. At that time he underwent a pharmacologic nuclear stress test that was negative and he was discharged. He has done well without a reoccurrence of symptoms until this morning. Through an paraprofessional interpreter the patient indicates that his pain started around 6 AM was retrosternal and radiated down his left arm. It lasted for about an hour and then spontaneously resolved on its own. He currently is pain-free. He is not short of breath. Denies orthopnea or lower extremity edema. He has had no heart palpitations or tachycardia. The patient did have an EKG performed at the detention that was interpreted as a rate controlled atrial fibrillation however, by my review I believe the patient is in sinus rhythm with PACs. There were no acute changes on this EKG nor on the admitting EKG. Patient has been in sinus rhythm since being admitted to the hospital. Allergies Allergy/AdvReac Type Severity Reaction Status Date / Time Fish Containing Products Allergy Unknown ON MED Verified 10/15/22 09:01 [facility] Medications Medication Instructions Recorded Confirmed Type albuterol sulfate 90 mcg/actuation 2 puff inhalation QID PRN 08/02/22 10/15/22 History aerosol inhaler (Proventil HFA) Shortness Of Breath aspirin 81 mg tablet,delayed 81 mg PO DAILY 08/02/22 10/15/22 History release metformin 1,000 mg tablet 1,000 mg PO BID 08/02/22 10/15/22 History naproxen 500 mg tablet 500 mg PO BID PRN Back Pain 08/02/22 10/15/22 History rosuvastatin 40 mg tablet 40 mg PO HS 08/02/22 10/15/22 History metoprolol tartrate 25 mg tablet 12.5 mg PO BID #60 tabs 08/06/22 10/15/22 Rx umeclidinium 62.5 mcg/actuation 1 inh inhalation QAM #30 ea 08/06/22 10/15/22 Rx blister powder for inhalation (Incruse Ellipta) clotrimazole 1 % topical cream 1 applic topical BID 10/15/22 10/15/22 History omeprazole 20 mg capsule,delayed 20 mg PO DAILY 10/15/22 10/15/22 History release Patient History Medical History CAD (coronary artery disease) 2016 - NSTEMI s/p BMS to LAD COPD (chronic obstructive pulmonary disease) DM2 (diabetes mellitus, type 2) HTN (hypertension) Surgical History No significant past surgical history Social History Smoking Status: Former smoker Second Hand Exposure: No; Hx Alcohol Use: Yes (INMATE) Alcohol type: hard liquor Hx Substance Use: Yes (INMATE) Preferred Language: Palestinian Communication Ability: Effective Communication Tools: IPad Cryptanalyst Required: Yes Beliefs That Will Affect Care: None marital status: Single Current Living Situation: Other How many Children do You have: 0 Other Information That Helps Us Care for You: No Feels Safe at Home: Yes Safety Concerns: Feels Safe At This Time Assistive Devices: None Review of Systems Review of Systems: Review of Systems: See HPI for pertinent positives. All other 10 point review of systems are negative. Physical Exam Physical Exam: General: no acute distress and stated age Head: normocephalic, no masses, lesions, tenderness or abnormalities Eyes: conjunctiva are pink and non-injected, sclera clear Neck: supple, no adenopathy, no bruits, normal jugular venous pulse, no hepatojugular reflux Chest: normal shape and normal respiratory effort Lungs: clear to auscultation and percussion Cardiac Exam: - regular rate & rhythm, no murmurs gallops or rubs - normal S1, normal S2 Pulses: 2(+) throughout Abdomen: abdomen soft, non-tender, no abnormal masses and no hepatosplenomegaly Musculoskeletal: no gait disturbance, no joint inflammation, no deforming arthritis Extremities: no edema and no cyanosis Neuro: grossly normal exam Results & Data ([facility]) Vital Signs (Past 12 Hours) Vital Signs Temp Pulse Pulse Resp BP BP Pulse Ox 10/15/22 12:29 36.9 C 82 20 117/64 95 10/15/22 11:03 36.9 C 84 18 119/74 94 10/15/22 09:00 67 25 H 10/15/22 09:00 117/69 10/15/22 08:55 66 24 10/15/22 08:55 135/67 10/15/22 09:08 66 18 95 10/15/22 08:58 36.9 C 66 18 135/67 96 O2 Del Method 10/15/22 12:29 Room Air 10/15/22 11:03 Room Air 10/15/22 09:00 10/15/22 09:00 10/15/22 08:55 10/15/22 08:55 10/15/22 09:08 Room Air 10/15/22 08:58 Room Air Laboratory Results Laboratory Results - last 24 hr 10/15/22 10/15/22 10/15/22 08:52 08:52 08:52 WBC 8.25 RBC 5.60 Hgb 15.1 Hct 46.1 MCV 82.3 MCH 27.0 MCHC 32.8 RDW Std Deviation 43.4 RDW Coeff of Zach 14.5 Plt Count 262 MPV 9.3 L Immature Gran % (Auto) 0.5 Neut % (Auto) 52.6 Lymph % (Auto) 30.2 [place] % (Auto) 10.3 Eos % (Auto) 5.8 Baso % (Auto) 0.6 Neut # (Auto) 4.34 Lymph # (Auto) 2.49 [place] # (Auto) 0.85 H Eos # (Auto) 0.48 Baso # (Auto) 0.05 Immature Gran # (Auto) 0.04 H PT 10.9 INR 1.0 APTT 28.8 PTT Ratio 1.0 Sodium 138 Potassium 4.2 Chloride 105 Carbon Dioxide 25 Anion Gap 8 BUN 18 Creatinine 1.15 Est Cr Clr Drug Dosing 68.0 Est GFR ( Amer) 76.4 Est GFR (Non-Af Amer) 65.9 BUN/Creatinine Ratio 15.7 Glucose 153 H Calcium 9.8 Magnesium 1.9 Total Bilirubin 0.5 AST 15 ALT 11 Alkaline Phosphatase 57 Troponin I High Sens 18.7 Total Protein 7.4 Albumin 4.5 Globulin 2.9 Albumin/Globulin Ratio 1.6 TSH SARS-CoV-2 (PCR) Influenza Type A (PCR) Influenza Type B (PCR) RSV (RT-PCR) 10/15/22 10/15/22 08:52 09:18 WBC RBC Hgb Hct MCV MCH MCHC RDW Std Deviation RDW Coeff of Zach Plt Count MPV Immature Gran % (Auto) Neut % (Auto) Lymph % (Auto) [place] % (Auto) Eos % (Auto) Baso % (Auto) Neut # (Auto) Lymph # (Auto) [place] # (Auto) Eos # (Auto) Baso # (Auto) Immature Gran # (Auto) PT INR APTT PTT Ratio Sodium Potassium Chloride Carbon Dioxide Anion Gap BUN Creatinine Est Cr Clr Drug Dosing Est GFR ( Amer) Est GFR (Non-Af Amer) BUN/Creatinine Ratio Glucose Calcium Magnesium Total Bilirubin AST ALT Alkaline Phosphatase Troponin I High Sens Total Protein Albumin Globulin Albumin/Globulin Ratio TSH 3.010 SARS-CoV-2 (PCR) NEGATIVE Influenza Type A (PCR) Negative Influenza Type B (PCR) Negative RSV (RT-PCR) Negative Medications Administered Current Inpatient Medications Aspirin (Aspirin 81 Mg Ectab) 81 mg PO DAILY HEBERT Stop: 11/15/22 08:59 Dextrose (Dextrose 50% 50 Ml Syringe) 25 - 50 ml IV UD PRN; Protocol PRN Reason: Hypoglycemia Protocol Stop: 11/14/22 12:58 Glucagon (Glucagon For Inj 1 Mg Vial) 1 mg SQ UD PRN; Protocol PRN Reason: Hypoglycemia Protocol Stop: 11/14/22 12:58 Glucose (Glucose 40% Gel 15 Gm Tube) 15 - 30 gm PO UD PRN; Protocol PRN Reason: Hypoglycemia Protocol Stop: 11/14/22 12:58 Glucose (Glucose 10 Tab/Tube) 4 - 8 tab PO UD PRN; Protocol PRN Reason: Hypoglycemia Treatment Stop: 11/14/22 12:58 Insulin Aspart (Insulin Aspart Per Unit) 0 units SC ACHS HEBERT Stop: 11/14/22 16:29 Metoprolol Tartrate (Metoprolol Tartrate 25 Mg Tab) 12.5 mg PO BID HEBERT Stop: 11/14/22 20:59 Miscellaneous (Carbohydrates For Hypoglycemia ) 15 - 30 gm PO UD PRN PRN Reason: Hypoglycemia Protocol Stop: 11/14/22 12:58 Pantoprazole Sodium (Pantoprazole 40 Mg Tab) 40 mg PO DAILY HEBERT Stop: 11/15/22 08:59 Rosuvastatin Calcium (Rosuvastatin Calcium 20 Mg Tab) 40 mg PO HS HEBERT Stop: 11/14/22 20:59 Umeclidinium [place] (Umeclidinium [place] 62.5mcg/Blister 7 Puffs/Inhaler) 1 puffs INH QAM HEBERT Stop: 11/15/22 08:59 (1) Chest pain Chest pain type: unspecified Qualified Code(s): R07.9 - Chest pain, unspecified
[2022-10-15] MEDS ORDERED: ENOXAPARIN INJ 40 MG/0.4 ML SYR SQ SCH (15:00)
[2022-10-15] MEDS: INSULIN ASPART PER UNIT SC SCH ×2 (17:15→22:20)
[2022-10-15] MEDS ORDERED: Heparin IV Adult Wt-Based Standard *NO* Bolus Protocol IV SCH (18:05)
[2022-10-15] MEDS ORDERED: HEPARIN SODIUM/DEXTROSE 25,000 UNITS/500 ML BAG IV SCH (18:30)
[2022-10-15] MEDS ORDERED: ROSUVASTATIN CALCIUM 20 MG TAB PO SCH (21:00)
[2022-10-15] MEDS: METOPROLOL TARTRATE 25 MG TAB PO SCH (22:30)
[2022-10-16 04:56] LABS: Hematocrit (blood only) 42.4 % (40.1-51.0); Hemoglobin 14.2 g/dl (14.0-18.0); Mean Corpuscular Hemoglobin 26.9 pg (25.0-34.0); Mean Corpuscular Hgb Conc 33.5 g/dL (32.0-36.0); Mean Corpuscular Volume 80.5 fL (80.0-100.0); Mean Platelet Volume 8.9 fL (9.4-12.4); Platelet Count 232 K/uL (130-400); RDW Coefficient of Variation 14.5 % (11.5-14.5); RDW Standard Deviation 42.2 fL (36.4-46.3); Red Blood Count 5.27 M/uL (4.63-6.08)
[2022-10-16 05:17] LABS: Calcium 9.2 mg/dl (8.5-10.1); Creatinine Clr Calc Pharmacy 69.8 ml/min; Est GFR (African American) 78.9 ml/min; Est GFR (Non-African American) 68.1 ml/min
[2022-10-16 05:48] LABS: Partial Thromboplastin Time 81.4 Seconds (21.0-31.0)
[2022-10-16] MEDS ORDERED: SODIUM CHLORIDE 0.9% 1000ML 1,000 ML IV SCH (08:00)
[2022-10-16] MEDS: METOPROLOL TARTRATE 25 MG TAB PO SCH (08:34)
[2022-10-16] MEDS: INSULIN ASPART PER UNIT SC SCH ×2 (08:42→12:40)
[2022-10-16] MEDS ORDERED: PANTOprazole 40 MG TAB PO SCH (09:00)
[2022-10-16] MEDS ORDERED: UMECLIDINIUM BROMIDE 62.5MCG/BLISTER 7 PUFFS/INHALER INH SCH (09:00)
[2022-10-16] MEDS ORDERED: ASPIRIN 81 MG ECTAB PO SCH (09:00)
--- NOTE | 2022-10-16 09:04 | Cardiology Progress Note ---
Date of Service October 16, 2022 Assessment & Plan (1) Chest pain: (2) DM2 (diabetes mellitus, type 2): (3) COPD (chronic obstructive pulmonary disease): (4) CAD (coronary artery disease): (5) Stented coronary artery: Plan The patient had an increased delta with his high-sensitivity troponins. I recommended that we proceed with a repeat cardiac catheterization. I explained the risk, benefit and intent of the procedure to the patient and he is willing to proceed. The procedure will be completed later today. Admission and Anticipated Discharge Date Admission Date: October 15, 2022 Subjective The patient had an uneventful night. No further chest pain. Review of Systems Review of Systems: Review of Systems: See HPI for pertinent positives. All other 10 point review of systems are negative. Physical Exam Physical Exam: General: no acute distress and stated age Head: normocephalic, no masses, lesions, tenderness or abnormalities Eyes: conjunctiva are pink and non-injected, sclera clear Neck: supple, no adenopathy, no bruits, normal jugular venous pulse, no hepatojugular reflux Chest: normal shape and normal respiratory effort Lungs: clear to auscultation and percussion Cardiac Exam: - regular rate & rhythm, no murmurs gallops or rubs - normal S1, normal S2 Pulses: 2(+) throughout Abdomen: abdomen soft, non-tender, no abnormal masses and no hepatosplenomegaly Musculoskeletal: no gait disturbance, no joint inflammation, no deforming arthritis Extremities: no edema and no cyanosis Neuro: grossly normal exam Results & Data ([facility]) Vital Signs (Past 12 Hours) Vital Signs Temp Pulse Pulse Resp BP Pulse Ox O2 Del Method 10/16/22 07:51 36.8 C 94 H 16 149/73 H 97 Room Air 10/16/22 03:39 36.7 C 78 16 103/67 92 Room Air 10/16/22 00:05 77 10/15/22 23:03 36.9 C 83 18 102/67 92 Room Air Laboratory Results Laboratory Results - last 24 hr 10/15/22 10/15/22 10/15/22 08:52 08:52 08:52 WBC 8.25 RBC 5.60 Hgb 15.1 Hct 46.1 MCV 82.3 MCH 27.0 MCHC 32.8 RDW Std Deviation 43.4 RDW Coeff of Zach 14.5 Plt Count 262 MPV 9.3 L Immature Gran % (Auto) 0.5 Neut % (Auto) 52.6 Lymph % (Auto) 30.2 [place] % (Auto) 10.3 Eos % (Auto) 5.8 Baso % (Auto) 0.6 Neut # (Auto) 4.34 Lymph # (Auto) 2.49 [place] # (Auto) 0.85 H Eos # (Auto) 0.48 Baso # (Auto) 0.05 Immature Gran # (Auto) 0.04 H PT 10.9 INR 1.0 APTT 28.8 PTT Ratio 1.0 Sodium 138 Potassium 4.2 Chloride 105 Carbon Dioxide 25 Anion Gap 8 BUN 18 Creatinine 1.15 Est Cr Clr Drug Dosing 68.0 Est GFR ( Amer) 76.4 Est GFR (Non-Af Amer) 65.9 BUN/Creatinine Ratio 15.7 Glucose 153 H POC Glucose Calcium 9.8 Magnesium 1.9 Total Bilirubin 0.5 AST 15 ALT 11 Alkaline Phosphatase 57 Troponin I High Sens 18.7 Total Protein 7.4 Albumin 4.5 Globulin 2.9 Albumin/Globulin Ratio 1.6 TSH SARS-CoV-2 (PCR) Influenza Type A (PCR) Influenza Type B (PCR) RSV (RT-PCR) 10/15/22 10/15/22 10/15/22 08:52 09:18 14:50 WBC RBC Hgb Hct MCV MCH MCHC RDW Std Deviation RDW Coeff of Zach Plt Count MPV Immature Gran % (Auto) Neut % (Auto) Lymph % (Auto) [place] % (Auto) Eos % (Auto) Baso % (Auto) Neut # (Auto) Lymph # (Auto) [place] # (Auto) Eos # (Auto) Baso # (Auto) Immature Gran # (Auto) PT INR APTT PTT Ratio Sodium Potassium Chloride Carbon Dioxide Anion Gap BUN Creatinine Est Cr Clr Drug Dosing Est GFR ( Amer) Est GFR (Non-Af Amer) BUN/Creatinine Ratio Glucose POC Glucose Calcium Magnesium Total Bilirubin AST ALT Alkaline Phosphatase Troponin I High Sens 87.5 H* D Total Protein Albumin Globulin Albumin/Globulin Ratio TSH 3.010 SARS-CoV-2 (PCR) NEGATIVE Influenza Type A (PCR) Negative Influenza Type B (PCR) Negative RSV (RT-PCR) Negative 10/15/22 10/15/22 10/15/22 16:28 20:30 21:04 WBC RBC Hgb Hct MCV MCH MCHC RDW Std Deviation RDW Coeff of Zach Plt Count MPV Immature Gran % (Auto) Neut % (Auto) Lymph % (Auto) [place] % (Auto) Eos % (Auto) Baso % (Auto) Neut # (Auto) Lymph # (Auto) [place] # (Auto) Eos # (Auto) Baso # (Auto) Immature Gran # (Auto) PT INR APTT PTT Ratio Sodium Potassium Chloride Carbon Dioxide Anion Gap BUN Creatinine Est Cr Clr Drug Dosing Est GFR ( Amer) Est GFR (Non-Af Amer) BUN/Creatinine Ratio Glucose POC Glucose 136 H 107 H Calcium Magnesium Total Bilirubin AST ALT Alkaline Phosphatase Troponin I High Sens 60.3 H* D Total Protein Albumin Globulin Albumin/Globulin Ratio TSH SARS-CoV-2 (PCR) Influenza Type A (PCR) Influenza Type B (PCR) RSV (RT-PCR) 10/16/22 10/16/22 10/16/22 04:38 04:38 04:38 WBC 8.10 RBC 5.27 Hgb 14.2 Hct 42.4 MCV 80.5 MCH 26.9 MCHC 33.5 RDW Std Deviation 42.2 RDW Coeff of Zach 14.5 Plt Count 232 MPV 8.9 L Immature Gran % (Auto) Neut % (Auto) Lymph % (Auto) [place] % (Auto) Eos % (Auto) Baso % (Auto) Neut # (Auto) Lymph # (Auto) [place] # (Auto) Eos # (Auto) Baso # (Auto) Immature Gran # (Auto) PT INR APTT 81.4 H* PTT Ratio 3.0 Sodium 137 Potassium 4.0 Chloride 108 H Carbon Dioxide 23 Anion Gap 6 BUN 19 Creatinine 1.12 Est Cr Clr Drug Dosing 69.8 Est GFR ( Amer) 78.9 Est GFR (Non-Af Amer) 68.1 BUN/Creatinine Ratio 17.0 Glucose 154 H POC Glucose Calcium 9.2 Magnesium Total Bilirubin AST ALT Alkaline Phosphatase Troponin I High Sens Total Protein Albumin Globulin Albumin/Globulin Ratio TSH SARS-CoV-2 (PCR) Influenza Type A (PCR) Influenza Type B (PCR) RSV (RT-PCR) 10/16/22 05:29 WBC RBC Hgb Hct MCV MCH MCHC RDW Std Deviation RDW Coeff of Zach Plt Count MPV Immature Gran % (Auto) Neut % (Auto) Lymph % (Auto) [place] % (Auto) Eos % (Auto) Baso % (Auto) Neut # (Auto) Lymph # (Auto) [place] # (Auto) Eos # (Auto) Baso # (Auto) Immature Gran # (Auto) PT INR APTT PTT Ratio Sodium Potassium Chloride Carbon Dioxide Anion Gap BUN Creatinine Est Cr Clr Drug Dosing Est GFR ( Amer) Est GFR (Non-Af Amer) BUN/Creatinine Ratio Glucose POC Glucose 139 H Calcium Magnesium Total Bilirubin AST ALT Alkaline Phosphatase Troponin I High Sens Total Protein Albumin Globulin Albumin/Globulin Ratio TSH SARS-CoV-2 (PCR) Influenza Type A (PCR) Influenza Type B (PCR) RSV (RT-PCR) Diagnostic Findings The patient's EKGs are noted to have a short ND interval. He has no history of cardiac arrhythmias, I doubt that this is [id number] or pathologic preexcitation. Medications Administered Current Inpatient Medications Aspirin (Aspirin 81 Mg Ectab) 81 mg PO DAILY HEBERT Stop: 11/15/22 08:59 Last Admin: 10/16/22 08:32 Dose: 81 mg Dextrose (Dextrose 50% 50 Ml Syringe) 25 - 50 ml IV UD PRN; Protocol PRN Reason: Hypoglycemia Protocol Stop: 11/14/22 12:58 Glucagon (Glucagon For Inj 1 Mg Vial) 1 mg SQ UD PRN; Protocol PRN Reason: Hypoglycemia Protocol Stop: 11/14/22 12:58 Glucose (Glucose 40% Gel 15 Gm Tube) 15 - 30 gm PO UD PRN; Protocol PRN Reason: Hypoglycemia Protocol Stop: 11/14/22 12:58 Glucose (Glucose 10 Tab/Tube) 4 - 8 tab PO UD PRN; Protocol PRN Reason: Hypoglycemia Treatment Stop: 11/14/22 12:58 Sodium Chloride (Nss 1000ml) 1,000 mls @ 1 mls/hr IV .Q24H HEBERT Stop: 11/15/22 07:59 Last Admin: 10/16/22 08:33 Dose: 87 mls/hr Insulin Aspart (Insulin Aspart Per Unit) 0 units SC ACHS HEBERT Stop: 11/14/22 16:29 Last Admin: 10/16/22 08:42 Dose: Not Given Metoprolol Tartrate (Metoprolol Tartrate 25 Mg Tab) 12.5 mg PO BID HEBERT Stop: 11/14/22 20:59 Last Admin: 10/16/22 08:34 Dose: 12.5 mg Miscellaneous (Carbohydrates For Hypoglycemia ) 15 - 30 gm PO UD PRN PRN Reason: Hypoglycemia Protocol Stop: 11/14/22 12:58 Pantoprazole Sodium (Pantoprazole 40 Mg Tab) 40 mg PO DAILY [facility] Stop: 11/15/22 08:59 Last Admin: 10/16/22 08:32 Dose: 40 mg Rosuvastatin Calcium (Rosuvastatin Calcium 20 Mg Tab) 40 mg PO HS HEBERT Stop: 11/14/22 20:59 Last Admin: 10/15/22 22:30 Dose: 40 mg Umeclidinium [place] (Umeclidinium [place] 62.5mcg/Blister 7 Puffs/Inhaler) 1 puffs INH QAM HEBERT Stop: 11/15/22 08:59 Last Admin: 10/16/22 08:32 Dose: 1 puffs (1) Chest pain Chest pain type: unspecified Qualified Code(s): R07.9 - Chest pain, unspecified
--- NOTE | 2022-10-16 09:54 | Electrocardiogram Report ---
Test Reason : Blood Pressure : / mmHG Vent. Rate : 076 BPM Atrial Rate : 076 BPM P-R Int : 190 ms QRS Dur : 088 ms QT Int : 394 ms P-R-T Axes : 047 056 037 degrees QTc Int : 443 ms Normal sinus rhythm Normal ECG When compared with ECG of 15-OCT-2022 08:51, No significant change was found Confirmed by Patrick Reilly ([id number]) on 10/16/2022 9:54:05 AM Referred By: REFERRED SELF Confirmed By:Patrick Reilly
--- NOTE | 2022-10-16 10:00 | Electrocardiogram Report ---
Test Reason : Blood Pressure : / mmHG Vent. Rate : 101 BPM Atrial Rate : 101 BPM P-R Int : 132 ms QRS Dur : 084 ms QT Int : 368 ms P-R-T Axes : 054 -10 083 degrees QTc Int : 477 ms Sinus tachycardia Suspect ventricular pre-excitation Moderate voltage criteria for LVH, may be normal variant Nonspecific ST and T wave abnormality Abnormal ECG When compared with ECG of 15-OCT-2022 20:25, (unconfirmed) Questionable change in QRS axis , may be due to intermittent pre-excitation Nonspecific T wave abnormality now evident in Lateral leads Confirmed by Patrick Reilly ([id number]) on 10/16/2022 10:00:04 AM Referred By: REFERRED SELF Confirmed By:Patrick Reilly
--- NOTE | 2022-10-16 10:02 | Electrocardiogram Report ---
Test Reason : Blood Pressure : / mmHG Vent. Rate : 071 BPM Atrial Rate : 071 BPM P-R Int : 178 ms QRS Dur : 086 ms QT Int : 400 ms P-R-T Axes : 060 060 043 degrees QTc Int : 434 ms Normal sinus rhythm Normal ECG When compared with ECG of 15-OCT-2022 08:51, Nonspecific T wave abnormality, improved in Anterior leads Confirmed by Patrick Reilly ([id number]) on 10/16/2022 10:02:05 AM Referred By: REFERRED SELF Confirmed By:Patrick Reilly
[2022-10-16] MEDS ORDERED: niCARdipine HCL INJ 2.5 MG/ML 10 ML AMP ONE (10:26)
[2022-10-16] MEDS ORDERED: fentaNYL citrate 100 MCG/2 ML VIAL ONE (10:26)
[2022-10-16] MEDS ORDERED: MIDAZOLAM HCL 1 MG/ML 2ML VIAL ONE (10:26)
[2022-10-16] MEDS ORDERED: HEPARIN (PORCINE) 1000 UNIT/ML 10 ML (CATH LAB USE ONLY) ONE (10:26)
[2022-10-16] MEDS ORDERED: NITROGLYCERIN/D5W 100MCG/ML 20ML SYR ONE (10:27)
--- NOTE | 2022-10-16 11:12 | Cardiac Catheterization ---
Date of Service October 16, 2022 Cardiac Cath Report Cardiac Cath Report Procedure: 1. Left heart catheterization 2. Coronary angiography 3. Left ventriculogram History: This is a 67-year-old diabetic male who in 2016 had a coronary stent placed in the LAD. He returned with chest pain and had a delta elevation in his high- sensitivity troponin. Procedure summary: After informed consent was obtained through an floor worker well service. The patient was taken to the cardiac catheterization lab where he was prepped and draped in the usual manner for right transradial approach. Preformed 5 Liberian diagnostic catheters were utilized for the coronary angiograms. A 5 [place]ian pigtail catheter was used for the left heart pressures and left ventriculogram. Following the procedure the patient was taken to the holding area the [employer] [facility] in stable condition. ACC data: Start time 10:30 AM End time 10:52 AM Opening aortic pressure 88/61 Closing aortic pressure 93/52 LV pressure 105/13 Sedation 1 mg intravenous Versed IV fluid 50 cc normal saline Contrast 80 cc Optiray Fluoroscopy time 2.9 minutes Radiation 683 mGy DAP 65.17 Fuller per centimeter squared Right dominant system AUC score 9 Coronary angiography: Injections of the left coronary artery revealed the left main trunk to be widely patent. The LAD has a 50% ostial narrowing after the takeoff from the left main trunk. The previous stent in the LAD is widely patent along with the remainder the artery. The left circumflex artery consists principally of 2 distal marginal branches. The left circumflex system has luminal irregularities but is widely patent. Injections of the right coronary artery revealed to be dominant. Right coronary artery is widely patent. Left ventriculogram: The left ventricle is of normal size with normal systolic function. The estimated left ventricular ejection fraction is 60%. The mitral valve is competent. The aortic root and ascending aorta have normal morphology and diameter. Summary: The patient's previous coronary stent in the LAD is widely patent. There is a 50% narrowing of the LAD just at the takeoff from the left main trunk with the remainder the artery being widely patent. The left circumflex and right coronary arteries are widely patent. Patient has normal LV function. Recommendations: Continued medical management of the patient's coronary artery disease.
[2022-10-16 12:44] LABS: Partial Thromboplastin Ratio 1.7
[2022-10-16 12:48] LABS: Partial Thromboplastin Time 45.4 Seconds (21.0-31.0)
--- NOTE | 2022-10-16 14:12 | Hospitalist Progress Note ---
Date of Service October 16, 2022 Assessment & Plan (1) CAD (coronary artery disease): (2) Chest pain: Plan: Per admitting service notes with addendum: Patient presenting from [facility] for evaluation of chest discomfort. EKG obtained at facility concerning for atrial fibrillation however appears to be NSR with PACs. Chest pain resolved with application of oxygen, no further recurrences of chest pain. In the ED, initial HS troponin negative, EKG demonstrating NSR History of CAD, s/p BMS to LAD in 2016 Underwent pharmacologic nuclear stress test 07/2022 that was negative Consider GERD as a contributing factor to patient's symptoms today. Trend troponin Continue PEDIATRIC SPEECH LANGUAGE PATHOLOGIST ASA, statin, metoprolol Cardiology consult, case discussed with Dr. Pacheco 10/16/2022 Troponin decreased from 80, down to 60 EKG no signs of acute ischemia or infarct Status post cardiac cath by Dr. Ketan Pacheco: Summary: The patient's previous coronary stent in the LAD is widely patent. There is a 50% narrowing of the LAD just at the takeoff from the left main trunk with the remainder the artery being widely patent. The left circumflex and right coronary arteries are widely patent. Patient has normal LV function. Recommendations: Continued medical management of the patient's coronary artery disease. Chest pain could be related to patient's GERD Change omeprazole to Protonix 40 mg p.o. daily Discontinue naproxen, do not use NSAIDs Follow-up closely (3) DM2 (diabetes mellitus, type 2): Plan: Hgb A1c 7.2 07/2022 Resume metformin after 2 days given patient received IV contrast for cardiac cath today (4) COPD (chronic obstructive pulmonary disease): Plan: No signs of acute exacerbation, continue home inhalers (5) DVT prophylaxis: Plan: SQ Lovenox Admission and Anticipated Discharge Date Admission Date: October 15, 2022 Subjective Follow-up for chest pain, etc. Seen resting in bed, comfortable, not in distress States he feels fine overall no chest pain, dyspnea, palpitations, dizziness No abdominal pain, nausea, fevers or chills, cough Denies any other symptoms Status postcardiac cath, patent stent to the LAD Review of Systems Review of Systems: all noted and negative except for above Physical Exam Physical Exam: General- oriented x 3, not in distress, speaks in sentences with no effort or accessory muscle use Eyes- anicteric Neck- no JVD Lungs- clear breath sounds bilaterally, no rales/wheezes Heart- normal rate, regular rhythm; no murmurs Abdomen- normal bowel sounds, nondistended, soft, nontender Extremities- no pretibial edema, no calf tenderness Neuro- alert, oriented x 3; no gross focal neurologic deficits Skin- warm & dry Results & Data Results & Data ([facility]) Vital Signs (Past 12 Hours) Vital Signs Temp Pulse Resp BP Pulse Ox O2 Del Method 10/16/22 13:34 36.9 C 69 20 121/65 98 Room Air 10/16/22 13:13 36.8 C 70 18 110/62 97 Room Air 10/16/22 12:45 36.8 C 66 20 115/61 97 Room Air 10/16/22 12:30 36.7 C 65 18 103/62 97 Room Air 10/16/22 12:10 36.7 C 64 20 127/69 95 Nasal Cannula 10/16/22 11:39 36.9 C 84 20 120/65 Room Air 10/16/22 11:15 77 16 91/60 L 92 Room Air 10/16/22 11:00 77 16 110/65 92 Room Air 10/16/22 09:45 69 17 110/64 93 Room Air 10/16/22 07:51 36.8 C 94 H 16 149/73 H 97 Room Air 10/16/22 03:39 36.7 C 78 16 103/67 92 Room Air all noted and reviewed including below (1) Chest pain Chest pain type: unspecified Qualified Code(s): R07.9 - Chest pain, unspecified
--- NOTE | 2022-10-16 14:14 | Discharge Summary ---
Discharge Summary Date of Service October 16, 2022 Notes For Next Care Provider Chest pain could be related to GERD/peptic ulcer disease Change omeprazole to pantoprazole 40 mg p.o. daily Discontinue naproxen Resume metformin after 2 days given patient received IV contrast during cardiac cath Medication Changes From Visit Per above Admission HPI Per Admitting Provider 67 year old male with PMH CAD s/p NSTEMI and BMS to LAD, HTN, COPD, DM type II, and other problems listed below who presents to the ED from [facility] for evaluation of chest pain. Patient is primarily Romanian-speaking, therefore translation service via iPad was used during interview. Patient reports that around 0640 he developed a midsternal chest pain that radiated into the left arm. Patient describes the discomfort as a burning. Symptoms lasted for about 20 minutes and resolved once oxygen was applied. EKG was obtained at [facility] and there was a concern for atrial fibrillation so patient was sent to the ED for further evaluation. Patient reports associated shortness of breath. No nausea, diaphoresis, palpitations, or lightheadedness. Patient reports he other mcdonald has been feeling well recently. Last episode of chest pain was in July when he was admitted for chest pain work up. No recent illnesses, fever, or chills. Denies abdominal pain, vomiting, or diarrhea. No urinary symptoms. In the ED, EKG demonstrates NSR and initial HS trop is negative. Vitals are stable. Admission Exam Per Admitting Provider Constitutional: WD/WN, vitals as above Eyes: PERRL, conjunctivae normal, anicteric sclerae ENMT: external ear and nose normal, oropharynx normal Respiratory: normal respiratory effort, lungs clear to auscultation Cardiovascular: Rate/Rhythm: regular rate and regular rhythm Vessels: normal peripheral pulses Extremities: no edema Gastrointestinal (Abdomen): normal bowel sounds, soft, nontender, no hepatosplenomegaly Musculoskeletal: no cyanosis or clubbing, extremities motor strength 5/5 Skin: no rashes, warm and dry Neurologic: PERRL, EOMI, accommodation nl, no face palsy, no dysarthria Psychiatric: A+Ox3, euthymic affect Principal Dx & Hospital Course #1 = Principal Diagnosis (1) CAD (coronary artery disease): (2) Chest pain: Per admitting service notes with addendum: Patient presenting from [facility] for evaluation of chest discomfort. EKG obtained at facility concerning for atrial fibrillation however appears to be NSR with PACs. Chest pain resolved with application of oxygen, no further recurrences of chest pain. In the ED, initial HS troponin negative, EKG demonstrating NSR History of CAD, s/p BMS to LAD in 2015 Underwent pharmacologic nuclear stress test 07/2022 that was negative Consider GERD as a contributing factor to patient's symptoms today. Trend troponin Continue CODING ANALYST ASA, statin, metoprolol Cardiology consult, case discussed with Dr. Pacheco 10/16/2022 Troponin decreased from 80, down to 60 EKG no signs of acute ischemia or infarct Status post cardiac cath by Dr. Ketan Pacheco: Summary: The patient's previous coronary stent in the LAD is widely patent. There is a 50% narrowing of the LAD just at the takeoff from the left main trunk with the remainder the artery being widely patent. The left circumflex and right coronary arteries are widely patent. Patient has normal LV function. Recommendations: Continued medical management of the patient's coronary artery disease. Chest pain could be related to patient's GERD Change omeprazole to Protonix 40 mg p.o. daily Discontinue naproxen, do not use NSAIDs Follow-up closely (3) DM2 (diabetes mellitus, type 2): Hgb A1c 7.2 07/2022 Resume metformin after 2 days given patient received IV contrast for cardiac cath today (4) COPD (chronic obstructive pulmonary disease): No signs of acute exacerbation, continue home inhalers (5) DVT prophylaxis: SQ Lovenox Discharge Exam General- oriented x 3, not in distress, speaks in sentences with no effort or accessory muscle use Eyes- anicteric Neck- no JVD Lungs- clear breath sounds bilaterally, no rales/wheezes Heart- normal rate, regular rhythm; no murmurs Abdomen- normal bowel sounds, nondistended, soft, nontender Extremities- no pretibial edema, no calf tenderness Neuro- alert, oriented x 3; no gross focal neurologic deficits Skin- warm & dry Updated Medication List Medication Instructions Recorded Confirmed Type albuterol sulfate 90 mcg/actuation 2 puff inhalation QID PRN 08/02/22 10/15/22 History aerosol inhaler (Proventil HFA) Shortness Of Breath aspirin 81 mg tablet,delayed 81 mg PO DAILY 08/02/22 10/15/22 History release metformin 1,000 mg tablet 1,000 mg PO BID 08/02/22 10/15/22 History naproxen 500 mg tablet 500 mg PO BID PRN Back Pain 08/02/22 10/15/22 History rosuvastatin 40 mg tablet 40 mg PO HS 08/02/22 10/15/22 History metoprolol tartrate 25 mg tablet 12.5 mg PO BID #60 tabs 08/06/22 10/15/22 Rx umeclidinium 62.5 mcg/actuation 1 inh inhalation QAM #30 ea 08/06/22 10/15/22 Rx blister powder for inhalation (Incruse Ellipta) clotrimazole 1 % topical cream 1 applic topical BID 10/15/22 10/15/22 History omeprazole 20 mg capsule,delayed 20 mg PO DAILY 10/15/22 10/15/22 History release pantoprazole 40 mg tablet,delayed 40 mg PO DAILY 30 days #30 tabs 10/16/22 Rx release Hospital Stay Data Consultations 10/15/22 10:50 ED Decision to Admit Stat 10/15/22 12:12 Consult Cardiology Routine Procedures Performed Operation Date: 10/16/22 09:30 Actual Procedures p Cineradiography w/Routine Exam - Ketan Pacheco, DO p Cath, Left with Cors and Vent - Ketan Pacheco, DO Diagnostic Imagining Performed 10/16/22 08:38 CL Cath Imgs for PACS use only Routine Pending Results Patient Have Any Pending Studies at Discharge: No Discharge Instructions Given to Patient (Per Discharging Provider) RESUME METFORMIN AFTER 2 DAYS PATIENT HAD IV CONTRAST FROM CARDIAC CATHETERIZATION. CHANGE OMEPRAZOLE TO PROTONIX 40 MG P.O. DAILY. PLEASE REFER TO ACCOMPANYING HOSPITAL DISCHARGE SUMMARY FOR FURTHER DETAILS. ACTIVITY RECOMMENDATIONS: Excess manipulation of the wrist should be avoided for the next 24-48 hours. * No lifting over 2 pounds (approximately a 1/2 gallon of milk) with the utilized arm for 24 hours. * No strenuous activity such as bowling or tennis for 3 days. * Keep the site of the procedure covered with a bandage for 24 hours. *You may shower the day after the procedure. Do not take a tub bath or submerge the puncture site in water for the next 3 days. *Do not operate any motorized equipment for 3 days. SPECIAL CARE INSTRUCTIONS: The site may be slightly bruised and sore following your procedure. Should any of the following occur, contact the Dr. who performed your procedure. 1. Redness/inflammation, swelling, chills, or fever, or colored drainage at procedure site within 3-7 days after your procedure. 2. Coldness, discoloration, ongoing numbness, severe pain, or swelling. Expect mild tingling of hand and tenderness at the puncture site for up to three days. If this persists beyond three days, or other symptoms develop, notify the Dr. who performed your procedure. BLEEDING: If the procedure site on your wrist begins to bleed, do not panic 1. Place 1 or 2 fingers firmly just slightly above the insertion site to stop the bleeding. You may be able to feel your pulse as you hold pressure. 2. Lift your finger after 5 minutes to see if the bleeding has stopped. 3. Once the bleeding has stopped, gently wipe the wrist area clean with a bandage. * If the bleeding from your wrist does not stop after 10 minutes, or if there is a large amount of bleeding or spurting, call 911 (do not drive yourself to the hospital). SKIN IRRITATION: * You may experience some redness and/or swelling in the area where radiation was administered. If any skin irritation occurs, please contact your family physician. FOLLOW UP VISIT: Keep any scheduled doctor appointments. Total Time Total Time Spent Total Time Spent (In Minutes): >30 minutes
== END 2022-10-16 16:34 ==
LOC: 4W 08:44 → ED 08:44 → SUATTDRO 10:55 → 4W 11:35